=== PATIENT | female | born 1945 | race Caucasian/White ===

== ENCOUNTER → 2020-05-12 15:40 | Outpatient (CLI) | payer MEDICARE, OTHER, SELFPAY ==
[2020-05-13 17:59] LABS: COVID19 Sendout Not Detected (Not Detect)
== END ==
PROVIDERS: Visit Provider Physician Assistant
DX: Z01.812 Encounter for preprocedural laboratory examination (principal)
CPT/HCPCS: 87635

== ENCOUNTER 2020-05-15 05:59 | Inpatient (IN) | payer MEDICARE, OTHER, SELFPAY ==
[2020-05-08 09:53] VITALS: BMI 32.1
[2020-05-15] VITALS (16 sets, daily range): BP systolic 100–150; BP diastolic 40–75; PULSE 66–95; RESP 12–24; TEMP 36.1–37.6; O2SAT 95–98; BMI 32.4
--- NOTE | 2020-05-15 | DI.RAD.S_ITS ---
PROCEDURE: XR LUMBAR SPINE 2-3V INDICATIONS: L2-3, L3-4 XLIF TECHNIQUE: To views of the lumbar spine were acquired. COMPARISON: None. FINDINGS: Bones: Intraoperative images demonstrate postsurgical changes compatible with L2-L3 and L3-L4 XLIF. Orthopedic hardware is intact. Soft tissues: Overlying bowel gas pattern is normal. No suspicious soft tissue calcifications. IMPRESSION: Expected postsurgical change for L2-L3 and L3-L4 XLIF. Dictated by: Lynette Ennis MD, PhD on 05/15/2020 at 14:40 Approved by: Lynette Ennis MD, PhD on 05/15/2020 at 14:41
[2020-05-15] MEDS: LACTATED RINGERS 1,000 ML 42 ML IV ×2 (07:05→10:46)
--- NOTE | 2020-05-15 07:20 | PM.PREOP ---
Pre-operative Note COVID-19 COVID-19 status: Negative Result date/Date tested (Pos, Neg/Pending): 05/12/20 Interval Note History & Physical reviewed/Exam performed by Physician: Yes Changes to H&P: No
[2020-05-15] MEDS: CEFAZOLIN 2 GM/100 ML FROZ.PIGGY IV ×3 (07:58→19:36)
--- NOTE | 2020-05-15 08:31 | SUR.OPER ---
Right lateral on padded OR table. Head on pillow, gel axillary roll, pillow to support left arm. Legs flexed, pillows between legs, gel pad under down leg and ankle. Multiple passes of 3 inch cloth tape across shoulder, hip, upper and lower legs to secure patient on OR table. Prone on spine table, head in foam head support, padded chest and pelvic supports, gel pad at knees, lower legs supported by pillows; nipples, genitalia and toes free of pressure, arms secured on foam padded arm boards at <90 degrees abduction. Tape over blanket at thigh secured to table.
[2020-05-15] MEDS: VANCOMYCIN 1,000 MG VIAL 1000 MG TOP (08:44)
[2020-05-15] MEDS: THROMBIN (RECOMBINANT) 5,000 UNIT VIAL 5000 UNIT TOP (08:44)
[2020-05-15] MEDS: SODIUM CHLORIDE 0.9% 1,000 ML, GENTAMICIN 80 MG IRR ×2 (08:44→08:46)
[2020-05-15] MEDS: ACETAMINOPHEN IV 1,000 MG/100 ML VIAL 400 MG IV (10:05)
[2020-05-15] MEDS: BUPIVACAINE 0.5% (PF) 4 ML, MORPHINE-PF 4 MG, BUTORPHANOL 1 MG, fentaNYL 100 MCG INJ (11:32)
--- NOTE | 2020-05-15 12:45 | PM.OP.1 ---
Operative Date/Time/Diagnoses Date of procedure: 05/15/20 Time of procedure: 12:45 Pre-op diagnosis: Lumbar stenosis with radiculopathy History of lumbar fusion Post-op diagnosis: same Procedure & Clinicians Procedure: L2-3, L3-4 anterior fusion with cages L2-3, L3-4 posterior fusion L2, L3, L4 screws Removal of old L4, L5, S1 screws L2-3, L3-4 laminectomies Iliac crest bone graft aspirate Use of microscope Placement of epidural catheter Same procedure as scheduled: Yes Indications: [age] year old female with intractable pain from stenosis. They had failed conservative management and requested operative intervention. Risks and benefits of surgery were discussed and appropriate consents were obtained. Surgeon: Charanjit Sinclair Environmental Associate: Candi Salas Anesthesia Type: General Operative Notes Findings: None Closure Type: primary Specimen(s): none sent Prosthetic devices, grafts, tissues, transplants, or devices: NuVasive MAS reline screws and XLIF cages removed old Medtronic Legacy screws Applied: catheter Estimated Blood Loss (mL): 50 Blood products transfused: none Procedure in detail: Patient was brought to the operating room and intubated on the table. Time-out was performed. They were then rolled over to the lateral decubitus position with the [id number]. The table was bent and they were taped down in the correct position. X-rays were taken to confirm a true AP and lateral. Preoperative antibiotics were given. The left flank was prepped and draped in standard sterile fashion. Using fluoroscopy, a 3 cm incision was made above the iliac crest. We bluntly dissected down with Metzenbaum scissors and split the 3 abdominal muscle layers. We dissected out the retroperitoneal space and using finger guidance, brought our 1st dilator down to the psoas muscle. Using neuromonitoring and fluoroscopy, we placed it through the psoas onto the L3-4 disc space in an anterior position and gradually pulled the dilator posteriorly along the disc space. We placed our guidewire and measured our depth for the retractor. We then dilated with the next 2 dilators and then placed our retractor over the dilators. Position was confirmed with fluoroscopy and the retractor was locked down to the bar. We opened up the retractor and checked with neuro monitoring. We then placed the manisha and again checked with neuro monitoring. The retractor was opened further and the ALL retractor was placed. An annulotomy was performed. We then performed a complete diskectomy with ring curette, pituitary, box osteotome. A Ho was advanced across the disc space under fluoroscopy to release the lateral annulus on the opposite side. We then used sequentially larger trials and confirmed under fluoroscopy. An XLIF cage was packed with Osteocel bone graft and impacted into the L3-4 disc space with fluoroscopy for the anterior fusion at this level. The wound was irrigated. The retractor was closed down. The manisha was removed. We carefully removed the retractor with direct visualization to make sure there was no neurovascular or abdominal injury. We then moved the dilator up to L2-3. We dilated, placed a retractor, placed a Manisha, opened this up. We performed a complete diskectomy with lateral release. We prepped and then trialed and then placed another cage with bone graft into the L2-3 disc space for the anterior fusion at this level. The wound was irrigated. We carefully closed the retractor down and removed with direct visualization. Final x-rays were taken. The muscle fascia was closed, superficial tissue was closed. The skin was closed. Sterile dressing was placed. The patient was then rolled over on the well-padded prone position on the [place] table. Using fluoroscopy, we made to 12 cm longitudinal incisions on each side. Bovie used to come down to and split the lumbodorsal fascia. We kept splitting until we exposed the screws at L4, L5, and S1. These were cleared off of scar tissue and extra bone that was covering them. We then removed the set screws, rods, and pedicle screws on both sides from L4 through S1. We placed a guidewire down the L4 screw hole. We then placed Jamshidi needles down the right pedicles of L2 and L3 with fluoroscopic guidance and neural monitoring. These were changed out to guidewires. We then tapped and then placed our screw shanks down L2, L3, and L4. We up sized to a 7.5 mm screw at the previous L4 hole. We then opened up her retractors. We cleared out the gutter and decorticated the transverse processes. We cleared medially and expose the lamina. Brought in the microscope. A right-sided laminectomy was performed at L3-4. We used the bur to go across the midline and then carefully depressed the dura and remove the remainder of the lamina and the ligamentous thickening. She had massive facet hypertrophy on both sides and we had quite extensive work decompressing this until we had removed the overgrown facets and completely cleared out the canal and the neural foramen. A ball probe could be placed cephalad, caudally and out the foramen and it was all open. We then moved our retractors up to L2-3. Again we decorticated the transverse processes after clearing the gutter. We exposed medially and performed a right-sided laminectomy at L2-3. We again cleared all the way across the midline removed all the facet and ligament hypertrophy. In the end we could sweep the ball probe cephalad, caudally and out the foramen and everything was open. The wound was copiously irrigated. An epidural catheter was primed with 4mL of 0.5% bupivacaine, 100 mcg fentanyl, 4 mg Duramorph, 1 mg Stadol. The dura was depressed under the cephalad lamina with a ball probe and the epidural catheter was gently advanced 6 cm cephalad. We then placed our screw heads onto the shanks, measured our shirley, placed it and locked them down. A small stab incision was made over the PSIS and a Jamshidi needle was placed into the iliac crest and several mL of bone marrow was aspirated. This was mixed with our locally harvested bone graft as well as the remaining Osteocel and placed in the posterolateral gutter for fusion at L2-3 and L3-4. The fascia was then closed. The epidural was then injected without resistance. The catheter was pulled and we closed more over the fascia. We then went to the opposite side on the left. We percutaneously placed Jamshidi needles down the left pedicles of L2 and L3 and switched these up to guidewires using fluoroscopy and neural monitoring. We placed a guidewire down the previous hole of L4. We then tapped and placed our screws at L2, L3, and L4. We placed a shirley and locked it down. The wound was irrigated. The fascia was closed. Vancomycin powder was placed in the wounds. The superficial and skin were closed. Sterile dressing was placed. The patient was then rolled over, extubated, brought to the recovery room with no complications. Complications: none Post-operative Condition: stable Disposition: PACU Plan for aftercare: Inpatient. Up with PT. Anticipate 3 days until discharge.
[2020-05-15] MEDS: HYDROMORPHONE 2 MG INJ IV ×3 (13:07→13:55)
--- NOTE | 2020-05-15 14:01 | SUR.PHASEI ---
Report called to Stephanie on floor, pt stable pain at a 5. Few minutes after calling report pt states pain now a 6 and wanting more pain med.
--- NOTE | 2020-05-15 14:28 | SUR.PHASEI ---
1320 pt transferred to room 205 in stable condition via bed, handoff to MARY Brown. Pt in good spirits
--- NOTE | 2020-05-15 15:42 | PC.NURSE ---
Admitted Mrs Mccray to room 206. During admitting process her spouse was in the chair, sleepy appearing, nodding in the chair, appearing as if he might fall out of chair. He reports his blood pressure has been duncan high. SMy doctor put me on a new medicine for it. Spouse is also sl disoriented, thinking it was thursday instead of thursday, profusely diaphoretic at that moment. BP on the rt 88/53 p 71 and on the lt it is 84/52 p of 72. Denies pain but reports he is profoundly dizzy and his usual bp's are in the 170's systolic and occ higher. Offered to take pt to ED and at the least he needed to speak with his director of acquisition marketing to ask what he should do. Pt called md office on the phone. He decided to go to the ED and was transported there by w/c. Pt: She has been doing well, pain controlled for now. Cont pulse ox is on and sats on 3L are 93-95%. On RA she was 87%. Taking diet w/out problems. No nausea. decreased movement to lower legs and feet. Brisk cap refill, ppp, feet =/warm. Pt main concern is for her spouse right now.
[2020-05-15] MEDS: HYDROMORPHONE 0.5 MG INJ IV ×4 (16:08→21:55)
[2020-05-15] MEDS: LACTATED RINGERS 1,000 ML 125 ML IV (16:12)
[2020-05-15] MEDS: hydrOXYzine pamoate 25 MG CAPSULE PO (16:17)
[2020-05-15] MEDS: diazePAM 5 MG TABLET PO (16:28)
[2020-05-15] MEDS: HYDROCODONE/ACET 5/325 TABLET 1 TAB PO (16:40)
[2020-05-15] MEDS: HYDROCODONE/ACET 10/325 TABLET 1 TAB PO ×2 (16:41→20:46)
[2020-05-15] MEDS: DOCUSATE 100 MG CAPSULE PO (20:46)
[2020-05-15] MEDS: FAMOTIDINE 20 MG TABLET PO (20:46)
[2020-05-15] MEDS: SENNOSIDES 8.6 MG TABLET 17.2 MG PO (20:46)
[2020-05-15] MEDS: POLYVINYL ALCOHOL DROPS 1 DROPS EYE-BOTH (20:47)
[2020-05-15] MEDS: GABAPENTIN 300 MG CAPSULE 600 MG PO (20:47)
[2020-05-15] MEDS: ASPIRIN EC 81 MG TABLET PO (20:47)
[2020-05-15] MEDS: BACLOFEN 10 MG TABLET 20 MG PO (20:52)
[2020-05-16] MEDS: LACTATED RINGERS 1,000 ML 125 ML IV (01:00)
[2020-05-16] MEDS: HYDROCODONE/ACET 10/325 TABLET 2 TAB PO ×2 (02:59→10:50)
[2020-05-16 03:00] VITALS: BP 111/72; PULSE 84; RESP 18; TEMP 36.3; O2SAT 100
[2020-05-16] MEDS: CEFAZOLIN 2 GM/100 ML FROZ.PIGGY IV (03:39)
[2020-05-16 06:55] LABS: Hemoglobin 11.3 g/dL (12.0-16.0)
[2020-05-16 06:58] LABS: BUN Creatinine Ratio 21.3 (6-22); Blood Urea Nitrogen 20 mg/dL (7-17); Calcium 9.4 mg/dL (8.4-10.2); Carbon Dioxide 30 mmol/L (22-32); Chloride 102 mmol/L (98-107); Estimated Glomerular Filt Rate 58.4 mL/min (>60); Glucose 115 mg/dL (80-110); HEMOLYSIS < 15 (0-50); Potassium 4.2 mmol/L (3.4-5.1); Sodium 136 mmol/L (137-145)
[2020-05-16] MEDS: HYDROCODONE/ACET 10/325 TABLET 1 TAB PO ×4 (07:08→23:30)
[2020-05-16 07:45] VITALS: BP 89/52; PULSE 77; RESP 18; O2SAT 98
--- NOTE | 2020-05-16 07:50 | PM.PNPO.1 ---
Subjective Subjective Date Patient Seen: 05/16/20 Time Patient Seen: 07:50 Interval history: She's doing well. All LBP, about 6/10, but she's easily moving around in bed. Dressing soaked and changed last night. Exam Vital Signs (past 8 hours): - 05/16/20 03:00 Temperature 97.3 F L Pulse Rate 84 Respiratory Rate 18 Blood Pressure 111/72 Pulse Oximetry 100 Oxygen Delivery Method Nasal Cannula Oxygen Flow Rate 3 Const Orientation: alert and oriented x3 Back/Spine/Pelvis Other: cdi. 5/5 motor BLE Objective Labs Result Diagrams: 05/16/20 06:37 05/16/20 06:37 Labs: Laboratory Results - last 24 hr 05/16/20 05/16/20 06:37 06:37 Hgb 11.3 L Hct 33.0 L Sodium 136 L Potassium 4.2 Chloride 102 Carbon Dioxide 30 BUN 20 H Creatinine 0.94 Estimated GFR 58.4 L BUN/Creatinine Ratio 21.3 Glucose 115 H Calcium 9.4 Assessment & Plan Post-op Postoperative Procedures: Procedures Operation Date: 05/15/20 07:45 Actual Procedures Side Surgeon p L23,L34 laminectomies & anterior/posterior instrumented fusion w/bone graft/removal of old screws L4-S1 Charanjit Sinclair MD She's doing well, mobilize with PT today. Quality VTE Deep Vein Thrombosis/Pulmonary Embolism Present on Admission: No
[2020-05-16] MEDS: SODIUM CHLORIDE 0.9% FLUSH 10 ML IV ×2 (07:54→23:31)
[2020-05-16] MEDS: MELOXICAM 7.5 MG TABLET 15 MG PO (07:54)
[2020-05-16] MEDS: BACLOFEN 10 MG TABLET 20 MG PO ×2 (07:54→21:30)
[2020-05-16] MEDS: DOCUSATE 100 MG CAPSULE PO ×2 (07:55→21:30)
[2020-05-16] MEDS: FAMOTIDINE 20 MG TABLET PO ×2 (07:55→21:30)
[2020-05-16] MEDS: GABAPENTIN 300 MG CAPSULE 600 MG PO ×2 (07:55→21:31)
[2020-05-16] MEDS: LORATADINE 10 MG TABLET PO (07:56)
--- NOTE | 2020-05-16 08:14 | PC.NURSE ---
Addendum entered by Beatriz Marie R.N. 05/16/20 09:53: Pt A&OX4, able to make her needs known using call light. Pt' Zach in room. Pt very anxious regarding pain management and movement. Support and encouragement provided. Explained PRN medications available for pain, spasms, and anxiety and administration of prn medications to avoid sedation. Pt reports 6/10 pain to lower back radiating to right leg. Pain management plan discussed. Pt states at home she takes her scheduled Meloxicam and Baclofen first thing after waking in the morning at home for pain management. Scheduled Meloxicam and PRN Baclofen given at 0755. Pt ambulated to chair with PT around 0920, pt stated she had mobilized better than she thought she would have. Per PT pt requested prn pain med. None available at this time, next dose available 1100. PRn Vistaril given at 0940 for muscle spasms to lower back right side and right thigh. Lower back dressing CDI. Pt has chronic right lower leg numbness from foot to below knee and to left foot. Per PT, pt had a fall approx 3 months ago. bed and chair alarm used. Call light within reach. Original Note: Day Shift- Spoke with Dr. Sinclair at 0745, Brigido pain med administration range from [place] 2-02-70-20mg if needed depending on pain level. Spoke with Dr. Sinclair again at 0805, made aware pt's BP was 89/52, asymptomatic at this time, no new orders, will monitor. Pt drinking qs amount of fluids.
[2020-05-16 08:35] VITALS: BP 115/71; PULSE 83; RESP 16; TEMP 36.2; O2SAT 98
[2020-05-16] MEDS: FUROSEMIDE 20 MG TABLET PO (09:42)
[2020-05-16] MEDS: LOSARTAN 50 MG TABLET 100 MG PO (09:42)
[2020-05-16] MEDS: hydrOXYzine pamoate 25 MG CAPSULE PO ×2 (09:42→17:06)
--- NOTE | 2020-05-16 11:13 | PT.IIE ---
Current Diagnoses Spinal stenosis, lumbar region with neurogenic claudication (05/15/20) Arthrodesis status (05/15/20) Surgery Performed Operation Date: 05/15/20 07:45 Actual Procedures p L23,L34 laminectomies & anterior/posterior instrumented fusion w/bone graft/removal of old screws L4-S1 - Charanjit Sinclair MD Surgical History (Last Updated 05/08/20 @ 10:22 by Bertha Caro RN) History of arthroplasty of right knee (Acute) History of bladder surgery (Acute) History of carpal tunnel surgery of right wrist (Acute) History of cholecystectomy (Acute) History of lumbar spinal fusion (Acute) History of total left hip arthroplasty (Acute) History of total right hip arthroplasty (Acute) Hx of appendectomy (Acute) Hx of bilateral cataract extraction (Acute) Hx of section (Acute) Hx of tonsillectomy (Acute) Status post cervical spinal fusion (Acute 2011) Status post reverse total arthroplasty of right shoulder (Acute) Medical History (Last Updated 05/08/20 @ 10:22 by Bertha Caro RN) Back pain (Acute) CVA (cerebral vascular accident) (Acute 1994) Easy bruisability (Acute) Fibromyalgia (Acute) HTN (hypertension) (Acute) Nerve pain (Acute) Osteoarthritis (Acute) Osteoporosis (Acute) Seasonal allergies (Acute) Physical Therapy Inpatient Evaluation/Re-Eval M1 PT/OT-IP Prior Functional Status Start: 05/16/20 08:33 Freq: NEEDED Status: Active Protocol: Document 05/16/20 10:49 AW (Rec: 05/16/20 11:11 AW [email or web address]) Medical Review Prior Functional Status Medical History Reviewed Yes Communication Pt is an effective verbal communicator. Mobility and Gait Pt is modified indendent at baseline with use of 4WW most of the time and a single trekking pole part of the time . She states her mobility has declined since a fall ~3 months ago. She is concerned that she has lost a lot of core strength in that time. Activities of Daily Living and IADL's Modified independent with use of probation officer and sock aid for dressing. Independent with showers and toileting. Social History Household Members spouse Living Arrangements House Number of Floors (Floors) One Floor Home Environment High Toilet,Walk in Shower, Built-In Shower Seat,Ramp Home Equipment Four Wheel Walker,Bedside Commode,Shower Seat with Backrest,Medical Billing Supervisor,Sock Aid,Bed Rails,Grab Bars Near Toilet, Grab Bars In Shower Additional Social History Comment Pt typically exits the bed to her left side. She has a trapeze she can install on a bed cane if needed. She plans to sleep in a recliner for the first week after discharge. She lives with her spouse, Zach, who will be available and able to assist as needed. M2 PT-IP Current Condition Start: 05/16/20 08:33 Freq: NEEDED Status: Active Protocol: Document 05/16/20 10:49 AW (Rec: 05/16/20 11:11 AW [email or web address]) Physical Therapy Current Condition Current Condition Evaluation Date 05/16/20 Treatment Diagnosis s/p L2-3 L 3-4 TLIF; difficulty in walking Onset Date 05/15/20 Precautions Lumbar Precautions Log Roll,No Twisting,Limit Bending,Lifting Restriction of 10 lbs,Gait Belt above Incisional Area M3 PT-IP Subjective Start: 05/16/20 08:33 Freq: NEEDED Status: Active Protocol: Document 05/16/20 10:49 AW (Rec: 05/16/20 11:11 AW [email or web address]) Subjective Physical Therapy Visit Type Type Initial Evaluation Visit Start Time 09:04 Visit Stop Time 09:33 Total Visit Minutes 29 Physical Therapy Visit Comments Patient Comments Pt is willing to participate with PT Patient Goals Pt hopes to return home with her spouse assisting Therapy Pain Assessment Pain When Pain Assessed At Rest Pain Present Pain Present Pain Reported Location Lower Back Intensity 6 Scale Used 6/10 at rest; 8/10 during mobility Pain Management Techniques Apply Cold,Re-positioning, Timing of Activity with Medications M4 PT-IP Mobility and Gait Start: 05/16/20 08:33 Freq: NEEDED Status: Active Protocol: Document 05/16/20 10:49 AW (Rec: 05/16/20 11:11 AW [email or web address]) PT-Bed Mobility Assessment Rolling Type of Rolling Log Rolling,Roll to Left Level of Assist Minimal Assistance,1 Person Assistance Supine to Sit Supine to Sit Minimal Assistance,1 Person Assistance Scooting Scooting to Edge of Bed Standby Assistance PT-Transfer Assessment Sit to and From Stand Sit to and from Stand Minimal Assistance,1 Person Assistance,Use of Upper Extremities Equipment Transfer Assistive Device Gait Belt,Front Wheeled Walker Orthotic/Prosthetic Devices or Brace: No Transfers Transfer Destination Chair Transfer Technique pt ambulated with FWW Transfer Ability Level of Assist Contact Guard Assistance,Use of Upper Extremities Comments Mobility Comments Pt was reclined in the bed as PT arrived. With HOB flat, pt was able to log roll to her left side as she would at home and transition from sidelying to sit min A x 1. In sitting, she was able to sit EOB with and without UE support. She denied lightheadedness. Pt stood using FWW min A x 1 and ambulated two laps around the room with FWW CGA before transferring to the chair CGA and cues to use both hands on chair arms in order to avoid twisting. Pt was positioned on the chair with fresh ice and warm blanket, call light and all needs within reach. Nursing was alerted that pt was in chair and that PT was unable to locate a chair alarm . Gait Assessment Gait Gait Assistance Required: Contact Guard Assist Distance (Feet) 50 Able to Maintain Weight Bearing Status Yes During Gait Assistive Devices Assistive Device Gait Belt,Front Wheeled Walker Gait Deviations General Gait Pattern Antalgic,Decreased Stride Length,Decreased Feet Clearance,Flexed Trunk Factors Limiting Gait Function Factors Limiting Gait Function Decreased Activity Tolerance, Decreased Sensation,Decreased Strength,Limited Range of Motion,Pain,Poor Balance,Poor Safety Awareness Comments Gait Comments Pt ambulated around the room using FWW CGA with good attention to back precautions but reporting increased pain. Stair Climbing Assessment Comments Stair Climbing Comments Not assessed. No stairs at home. PT-Balance Assessment Sitting Balance and Reactions Static Sitting Balance Ability Good Dynamic Sitting Balance Ability Good Standing Balance and Reactions Static Standing Balance Ability Good Dynamic Standing Balance Ability Good Device Used FWW M5 PT-IP Objective Assessments Start: 05/16/20 08:33 Freq: NEEDED Status: Active Protocol: Document 05/16/20 10:49 AW (Rec: 05/16/20 11:11 AW [email or web address]) Orientation Orientation/Cognition Level of Alertness Alert Orientation Name,Day of Week,Place, Situation Language Function Ability No Deficits Noted Safety Awareness Decreased Safety Awareness Memory Description No Deficits Noted Gross Range of Motion Upper Extremity ROM Assessment Within Functional Limits Impairments Pt protects right shoulder with history of R reverse TSA but demonstrates good ROM. Lower Extremity ROM Assessment Within Functional Limits Strength Lower Extremity Strength Assessment Bilaterally Impaired Comments Strength Comments BLE grossly 4/5 Coordination Assessment Gross Coordination Gross Coordination WNL Sensation Assessment Sensation Gross Sensation Right LE Impaired,Left LE Impaired Light Touch Impaired Comments Sensation Comments Pt reports dull sensation to bilateral feet. Muscle Tone Muscle Tone WNL Yes M6 PT-IP Treatment Start: 05/16/20 08:33 Freq: NEEDED Status: Active Protocol: Document 05/16/20 10:49 AW (Rec: 05/16/20 11:11 AW [email or web address]) Physical Therapy Treatment Education Education Provided Precautions,Weight Bearing Status,Post-Op Packet,Safety Other Treatments Other Treatment Performed Provided education on role of PT, plan of care, post-op precautions, and safe use of FWW. M7 PT-IP Assessment and Plan Start: 05/16/20 08:33 Freq: NEEDED Status: Active Protocol: Document 05/16/20 10:49 AW (Rec: 05/16/20 11:11 AW [email or web address]) PT Summary Assessment and Plan Potential Rehabilitation Potential Good Status of Condition at Evaluation Evolving Summary Impairments Pain,ROM,Strength,Balance, Sensation,Bed Mobility, Transfers,Gait,Activity Tolerance Assessment Summary Mariah is a 75 yo woman seen for PT eval on POD1 following L2-3 L3-4 TLIF. She fell three months ago and has increased her use of a 4WW since that time. She lives with her supportive spouse who will be available to assist as needed at discharge. She has history of multiple orthopedic surgeries including RAHUL x 2, TKA, reverse total shoulder, laminectomy and cervical surgery. Pt was limited by pain on evaluation but required no more than min assist for bed mobility and CGA for transfers and short bout gait with FWW. PT anticipates Mariah will progress in the acute setting and will likely be safe to discharge home with spouse assist when medically cleared. Home health PT vs outpatient PT should also be considered. Goals Bed Mobility Goal Standby Assistance Transfer Goal Standby Assistance,Front Wheeled Walker Gait Goal Standby Assistance,Front Wheel Walker Gait Distance 200 Other Goals - pt will teach back spinal precautions Days to Meet Goals 3 Frequency of Treatment Frequency Of Treatment Twice a Day Treatment Plan Physical Therapy Treatment Plan Bed Mobility Training,Transfer Training,Gait Training, Therapeutic Exercise,Balance Retraining,Post Op Education, Discharge Planning,Hot or Cold Pack,Neuromuscular Re-ed Other Recommendations and Next Treatment review precautions; bed Focus mobility; progress gait with FWW; Recommendations To Nursing Amount of Assist Needed 1 Person Assist Discharge Recommendations PT Discharge Recommendations Home with Assistance,Home Health,Outpatient PT Other Discharge Recommendations home with assist and HH vs OP PT Transportation Needs at Discharge Private Vehicle
--- NOTE | 2020-05-16 12:10 | CM.DANOTE ---
DCP/Assessment: Reviewed chart. Patient is a 75yr old female admitted [facility] surgery performed on 05-15-20. PCP is Dr. Santana. Primary payor is 1)Medicare 2)[facility]. Met with patient explained CM/SW role. Patient reports that she resides with her spouse/Zach on [address]. Patient plans to d/c home when medically stable. Patient reports that she has all needed DME in the residence. Patient unsure on when she will discharge. Patient being followed by therapy. P: Anticipate home when medically stable. Patient reports that she has supportive spouse and does not anticipate any d/c planning needs. CM continue to follow. AKUA Severino Discharge Planning/Care Management CM Discharge Assessment Start: 05/16/20 12:00 Freq: Status: Active Protocol: Document 05/16/20 12:00 KJS (Rec: 05/16/20 12:10 KJS [id number]) Discharge Planning Assessment Assigned Telephone Messenger AKUA Severino Contact Information Zach Mccray (spouse) # Advance Directives? Yes Advance Directives on File No History Provided By Patient,Medical Record Prior Living Arrangements House Household Members spouse Type of transporation used prior to Drives own vehicle admit Independent with ADL's Yes Is patient alert and oriented? Yes Caregiver for Another No DME Already Rented / Owned Bath Bench,FWW / Walker, Bedside Commode Barriers to Discharge No Discharge Plan Home Transportation Arrangement Family to provide transport at time of d/c. Whiteboard Updated in Patient Room with Yes name and ext. # of Telephone Messenger Review Status In Process Next Review Type Continued Stay Review Pre-Anesthesia Assessment Start: 05/08/20 09:53 Freq: Status: Complete Protocol: Document 05/08/20 09:53 CAB (Rec: 05/08/20 10:39 CAB [id number]) Pre-Anesthesia Assessment Patient Information Reviewed Via Phone Assessment Assessment Completed With Patient H&P Completed Within 30 Days Yes Comment Labs/EKG done per pt, surgeon has-not here-COVID Screen @ 05/12/20 Primary Care Provider Everett Santana Seen Specialist in Last 12 Months Yes Specialist Seen Orthopedist Comment Rheumatology Primary Language Turkish Forge Press Operator Required No Height 165.1 cm Weight 87.543 kg Body Mass Index (BMI) 32.1 Hearing Ability Normal Visual Assist None Dentition Type Teeth, Natural Present Barriers to Learning None Other Aids No Hx Anesthesia Reactions No Hx Family Anesthesia Reaction No Hx Malignant Hyperthermia No Hx Blood Transfusions No Anesthesia Review Requested No alcohol intake current alcohol intake frequency 0-2 drinks per day Smoking Status Former smoker Tobacco type cigarettes how long ago did patient quit smoking Quit approx 15 years ago Substance Use Type other Comment CBD oil Pain Present Pain Reported Musculoskeletal Symptoms Abnormal Gait,Back Pain, Difficulty Walking,Muscle Cramps,Numbness,Radiating Pain into Limb History of Falling (Recent or History of Yes ) Patient is completely paralyzed or No completely immobile Prosthesis or Orthotic Device Cane,Front Wheel Walker Mental Status Oriented to own ability Comment My balance is terrible Is patient on oxygen? No Does patient have MCKENZIE/SOB No Hx Sleep Apnea No Currently Taking a Beta Peri No Can You Climb a Flight of Stairs Without Yes SOB Hx Chest Pain No Hx SOB No Hx Syncope or Dizziness No Anti-Coagulant Therapy Yes: ASA 81mg bid for CVA-pt to check w/PCP if needed to hold Has a Inside Account Executive No Cardiac Testing No Hx Pacemaker/ICD No Pacemaker Rep Required? No Cardiac Clearance Received Not Applicable Diet Type At Home Regular dysphagia No Gastrointestinal Symptoms Constipation Bladder Pattern Incontinent, Stress Urinary Catheter Present No Hx Urinary Self Catheterization No Diabetes No Patient No Lactating No Hx Drug Resistant Organism No Presence of External or Internal Medical Yes Devices Have you had any close contact with No someone diagnosed with COVID-19? Evaluation/Screening for possible COVID- Yes 19 infection completed? Marital Status Lives With spouse Prior Living Arrangements House Number of Floors (Floors) One Floor Support System Spouse Does the Patient Have Assistance After Yes Surgery Patient Discharge Plan Description Return Home Comment Pt advised 2-3 day length of stay per surgeon Feels Safe in Current Environment Yes Been Physically Hurt or Threatened By a No Person in Current Environment Do you have thoughts of harming yourself None or others? Are you currently considering suicide? No Do you have a plan to hurt yourself or No Plan others? Do You Have Any Spiritual Beliefs That No May Affect Your HC Choices? Do You Have Any Cultural Practices That No May Affect Your HC Choices? Comment Restorationism Who Can We Speak to About Patient's Care Family, friends Identifying Code for Release of Patient Declines to issue Information Health Care Proxy/Next of Kin Zach () Health Care Proxy Emergency Contact Name Zach () Emergency Contact Advance Directives? Yes Advance Directives on File No Requested Patient Bring Advanced Yes Directives DOS Power of Dry Ice Machine Operator Yes Power of Dry Ice Machine Operator Name Zach () Power of Dry Ice Machine Operator PAC Instructions Durable medical equipment, Medications to take/avoid, Nasal antibiotic,No ETOH/ petroleum product on skin DOS, Post-op transportation,Pre- surgical wash,Sturdy shoes/ comfortable clothes,Do not bring valuables and remove jewelry
--- NOTE | 2020-05-16 12:13 | OT.IP.EVAL ---
Current Diagnoses Spinal stenosis, lumbar region with neurogenic claudication (05/15/20) Arthrodesis status (05/15/20) Surgery Performed Operation Date: 05/15/20 07:45 Actual Procedures p L23,L34 laminectomies & anterior/posterior instrumented fusion w/bone graft/removal of old screws L4-S1 - Charanjit Sinclair MD Past Medical History (Last Updated 05/08/20 @ 10:22 by Bertha Caro RN) Back pain (Acute) CVA (cerebral vascular accident) (Acute 1994) Easy bruisability (Acute) Fibromyalgia (Acute) HTN (hypertension) (Acute) Nerve pain (Acute) Osteoarthritis (Acute) Osteoporosis (Acute) Seasonal allergies (Acute) Surgical History (Last Updated 05/08/20 @ 10:22 by Bertha Caro RN) History of arthroplasty of right knee (Acute) History of bladder surgery (Acute) History of carpal tunnel surgery of right wrist (Acute) History of cholecystectomy (Acute) History of lumbar spinal fusion (Acute) History of total left hip arthroplasty (Acute) History of total right hip arthroplasty (Acute) Hx of appendectomy (Acute) Hx of bilateral cataract extraction (Acute) Hx of section (Acute) Hx of tonsillectomy (Acute) Status post cervical spinal fusion (Acute 2011) Status post reverse total arthroplasty of right shoulder (Acute) Occupational Therapy Inpatient Evaluation/Re-Eval M1 PT/OT-IP Prior Functional Status Start: 05/16/20 12:49 Freq: NEEDED Status: Active Protocol: Document 05/16/20 11:25 [facility] (Rec: 05/16/20 13:05 [facility] [id number]) Medical Review Prior Functional Status Medical History Reviewed Yes Communication Pt is an effective verbal communicator. Mobility and Gait Pt is modified independent at baseline with use of 4WW most of the time and a single trekking pole part of the time . She states her mobility has declined since a fall ~3 months ago. She is concerned that she has lost a lot of core strength in that time. Activities of Daily Living and IADL's Modified independent with use of explosive technician and sock aid for dressing. Independent with showers and toileting. Social History Household Members spouse Living Arrangements House Number of Floors (Floors) One Floor Home Environment High Toilet,Walk in Shower, Built-In Shower Seat,Ramp Home Equipment Four Wheel Walker,Bedside Commode,Shower Seat with Backrest,Auto Tune Up Mechanic,Sock Aid,Bed Rails,Grab Bars Near Toilet, Grab Bars In Shower Additional Social History Comment Pt typically exits the bed to her left side. She has a trapeze she can install on a bed cane if needed. She plans to sleep in a recliner for the first week after discharge. She lives with her spouse, Zach, who will be available and able to assist as needed. M2 OT-IP Current Condition Start: 05/16/20 12:49 Freq: Status: Active Protocol: Document 05/16/20 11:25 [facility] (Rec: 05/16/20 13:05 [facility] [id number]) Occupational Therapy Current Condition Current Condition Evaluation Date 05/16/20 Treatment Diagnosis Lumbar Stenosis with radiculopathy Diagnosis Onset Date 05/15/20 Post Operative Precautions Lumbar Precautions Log Roll,No Twisting,Limit Bending,Lifting Restriction of 10 lbs,Gait Belt above Incisional Area M3 OT- IP Subjective and Pain Start: 05/16/20 12:49 Freq: Status: Active Protocol: Document 05/16/20 11:25 [facility] (Rec: 05/16/20 13:05 [facility] [id number]) OT- Subjective Occupational Therapy Visit Type Type Initial Evaluation Visit Start Time 11:25 Visit Stop Time 12:13 Total Visit Minutes 48 Notes Rep for bone stimulator company came to talk to the pt . Occupational Therapy Visit Comments Patient Comments Pt willing to get up to do grooming needs. Patient/Caregiver Goals To go home. OT Pain Assessment Pain When Pain Assessed During Mobility Pain Present Pain Present Pain Reported Location Right Leg Intensity 7 Scale Used Numeric (0 - 10) M4 OT- IP ADL's Start: 05/16/20 12:49 Freq: Status: Active Protocol: Document 05/16/20 11:25 [facility] (Rec: 05/16/20 13:05 [facility] [id number]) OT [id number] Comments OT Self-Feeding Comments Not at meal time. OT ADL-Grooming General Evaluation Grooming Ability Standby Assistance Areas Needing Assistance Retrieving/Set-up of Grooming Items Comments OT Grooming Comments VC for back precautions to spit into a cup while brushing her teeth and to keep FWW in front of her. OT ADL-Oral Care General Eval Oral Care Ability Independent OT ADL-Dressing General Eval Lower Body Dressing Ability Maximum Assistance Comments OT Dressing Comments Pt states prior use of explosive technician at home to assist with needs. Pt states her sock aid does not work well and to go over socks aid use tomorrow with pt . Pt just wanting to get up to do grooming and get back to bed at this time. OT ADL-Toileting General Evaluation Toileting Ability Total Assistance Comments OT Toileting Comments Pt has major at this time. OT ADL-Bathing Comments OT Bathing Comments NOt at this time. M5 OT- IP IADL's Start: 05/16/20 12:49 Freq: Status: Active Protocol: Document 05/16/20 11:25 [facility] (Rec: 05/16/20 13:05 [facility] [email or web address]) OT-Instrumental Activities of Daily Living Home Safety Awareness Awareness of Need for Assistance at Home Good Awareness Meal Preparation Meal Preparation Caregiver Provides Assist Musical Therapist Musical Therapist Caregiver Provides Assist M6 OT- IP Functional Cognition Start: 05/16/20 12:49 Freq: Status: Active Protocol: Document 05/16/20 11:25 [facility] (Rec: 05/16/20 13:05 [facility] [id number]) Cognitive Factors Limiting Selfcare Function Cognitive Ability Level of Alertness Alert Patient Orientation Name,Age,Birthday,Month,Date, Year,Day of Week,Place, Situation Attention Span Ability Capable of Focused Attention, Capable of Sustained Attention Ability to Follow Commands Able to Follow One Step Commands Memory Description Short Term Impaired Safety Awareness Decreased Ability to Apply Precautions,Underestimates Need for Assistance Problem Solving Ability Needs Assist to Identify Solutions Cognitive Comments Cognitive Assessment Comments Pt needing reminders for back precautions, step by step instruction for log rolling, and to be sure to use hand on the bed to help to push up to stand to FWW. OT- Vision and Hearing OT- Hearing Assessment OT- Hearing Assessment WFL OT- Vision Assessment Visual Acuity WFL M7 OT- IP Mobility and Balance Start: 05/16/20 12:49 Freq: Status: Active Protocol: Document 05/16/20 11:25 [facility] (Rec: 05/16/20 13:05 [facility] [id number]) OT- Bed Mobility Assessment Rolling Type of Rolling Roll to Left Level of Assistance Contact Guard Assistance, Bedrails Supine to Sit Supine to Sit Assist Minimal Assistance,1 Person Assistance Sit to Supine Sit to Supine Assist Moderate Assistance,1 Person Assistance,Bedrails OT-Transfer Assessment Sit to and From Stand Sit to and from Stand Minimal Assistance,1 Person Assistance Transfers Transfer Ability Minimal Assistance,1 Person Assistance Technique Transfer Destination Bed Devices Transfer Assistive Devices Gait Belt,Front Wheeled Walker Comments Mobility Comments LEENA to get up from sidelying and MODA to help get her legs into the bed. LEENA with FWW to walk to and from the bed to the sink due to slightly unsteady on her feet. OT- Balance Assessment Sitting Balance and Reactions Static Sitting Balance Ability Good Dynamic Sitting Balance Ability Fair Standing Balance and Reactions Static Standing Balance Ability Fair M9 OT- IP Assessment and Plan Start: 05/16/20 12:49 Freq: Status: Active Protocol: Document 05/16/20 11:25 [facility] (Rec: 05/16/20 13:05 [facility] [id number]) OT Summary Assessment and Plan Potential Rehabilitation Potential Good Analytic Complexity at Evaluation Low Summary OT Impairments Pain,Balance,Functional Cognition,Functional Mobility, Grooming,Dressing,Toileting, Bathing,Toilet Transfers, Shower Transfers,Activity Tolerance Progress Towards Goals Slow Progress due to Pain,Slow Progress due to Activity Tolerance Assessment Summary Pt low complexity and main barriers are pain , and now one person assist for Adl and transfer needs. In addition pt needing vc for safety awareness for FWW and back precautions. Pending caregiver training with pt's pt to go home with assist. Goals Grooming Goal Independent Dressing Goal Independent Toileting Goal Independent Bathing Goal Independent Toilet Transfer Goal Independent Shower Transfer Goal Independent Patient/Caregiver Education Goal Demonstrate Post-Op Precautions,Caregiver Independent Assisting Patient Days to Meet Goals 5 Frequency of Treatment Frequency Of Treatment Once a Day Treatment Plan OT Treatment Plan ADL Training,Functional Cognition Training,Functional Mobility,Patient/Family Education,Discharge Planning Other Treatment Recommendations and Next LB dressing, toileting Treatment Focus Discharge Recommendations OT Discharge Recommendations Home with Assistance Home Equipment Needs sock aid, toilet paper aid? Transportation Needs at Discharge Private Vehicle
[2020-05-16 13:24] VITALS: BP 123/56; PULSE 79; RESP 18; TEMP 36.7; O2SAT 95
--- NOTE | 2020-05-16 15:18 | PT.IPTN ---
Current Diagnoses Spinal stenosis, lumbar region with neurogenic claudication (05/15/20) Arthrodesis status (05/15/20) Surgery Performed Operation Date: 05/15/20 07:45 Actual Procedures p L23,L34 laminectomies & anterior/posterior instrumented fusion w/bone graft/removal of old screws L4-S1 - Charanjit Sinclair MD Physical Therapy Treatment Note M2 PT-IP Current Condition Start: 05/16/20 08:33 Freq: NEEDED Status: Active Protocol: Document 05/16/20 10:49 AW (Rec: 05/16/20 11:11 AW [id number]) Physical Therapy Current Condition Current Condition Evaluation Date 05/16/20 Treatment Diagnosis s/p L2-3 L 3-4 TLIF; difficulty in walking Onset Date 05/15/20 Precautions Lumbar Precautions Log Roll,No Twisting,Limit Bending,Lifting Restriction of 10 lbs,Gait Belt above Incisional Area M3 PT-IP Subjective Start: 05/16/20 08:33 Freq: NEEDED Status: Active Protocol: Document 05/16/20 14:50 TP (Rec: 05/16/20 16:31 TP [email or web address]) Subjective Physical Therapy Visit Type Type Treatment Note Visit Start Time 14:50 Visit Stop Time 15:18 Total Visit Minutes 28 Notes Che ORIENTAL RUG REPAIRER student supervised by Kristal GANDHI. Number of ORIENTAL RUG REPAIRER Visits 1 Physical Therapy Visit Comments Patient Comments Pt is willing to participate with PT Patient Goals Pt hopes to return home with her spouse assisting Therapy Pain Assessment Pain When Pain Assessed At Rest Pain Present Pain Present Pain Reported Location Lower Back Scale Used Pain report no scale given Pain Management Techniques Apply Cold,Re-positioning, Timing of Activity with Medications M4 PT-IP Mobility and Gait Start: 05/16/20 08:33 Freq: NEEDED Status: Active Protocol: Document 05/16/20 14:50 TP (Rec: 05/16/20 16:31 TP [email or web address]) PT-Bed Mobility Assessment Rolling Type of Rolling Roll to Left Level of Assist Minimal Assistance,1 Person Assistance Supine to Sit Supine to Sit Minimal Assistance,1 Person Assistance Sit to Supine Sit to Supine Minimal Assistance,1 Person Assistance Scooting Scooting to Edge of Bed Standby Assistance PT-Transfer Assessment Sit to and From Stand Sit to and from Stand Contact Guard Assistance,1 Person Assistance,Use of Upper Extremities Equipment Transfer Assistive Device Gait Belt,Front Wheeled Walker Orthotic/Prosthetic Devices or Brace: No Transfers Transfer Destination Bed Transfer Technique pt ambulated with FWW Transfer Ability Level of Assist Contact Guard Assistance,1 Person Assistance,Use of Upper Extremities Comments Mobility Comments Pt was reclined in the bed as PT arrived. With HOB flat, pt was able to log roll to her left side as she would at home and transition from sidelying to sit min A x 1. In sitting, she was able to sit EOB with and without UE support. Pt stood using FWW min A x 1 and ambulated further distance into hallway, approximately 130ft FWW CGA before return to bed, cues to use both hands to reach back to the bed prior to sitting. Pt education regarding hip hinge to maintain no bending of lumbar spine to adhere to spinal precautions. Sit to supine, including log roll Min Ax1 for LE repositioning on bed. Pt was positioned in the bed with fresh ice on lateral R LB, call light and all needs within reach. Discussed with nursing pt request to remove Traore catheter. Pt would benefit from futher acute PT to progress in increase bed mobility to increase functional independence and progress further strength and endurance for gait. Gait Assessment Gait Gait Assistance Required: Contact Guard Assist Distance (Feet) 130 Able to Maintain Weight Bearing Status Yes During Gait Assistive Devices Assistive Device Gait Belt,Front Wheeled Walker Orthotic/Prosthetic Devices or Brace: No Gait Deviations General Gait Pattern Antalgic,Decreased Stride Length,Decreased Feet Clearance,Flexed Trunk Factors Limiting Gait Function Factors Limiting Gait Function Decreased Activity Tolerance, Decreased Sensation,Decreased Strength,Limited Range of Motion,Pain,Poor Balance,Poor Safety Awareness Comments Gait Comments Pt ambulated approximately 130ft using FWW CGA with good attention to back precautions but reporting increased pain due to need for next dose of pain medication. Stair Climbing Assessment Comments Stair Climbing Comments Not assessed. No stairs at home. PT-Balance Assessment Sitting Balance and Reactions Static Sitting Balance Ability Good Dynamic Sitting Balance Ability Good Standing Balance and Reactions Static Standing Balance Ability Good Dynamic Standing Balance Ability Good Device Used FWW M5 PT-IP Objective Assessments Start: 05/16/20 08:33 Freq: NEEDED Status: Active Protocol: Document 05/16/20 10:49 AW (Rec: 05/16/20 11:11 AW [id number]) Orientation Orientation/Cognition Level of Alertness Alert Orientation Name,Day of Week,Place, Situation Language Function Ability No Deficits Noted Safety Awareness Decreased Safety Awareness Memory Description No Deficits Noted Gross Range of Motion Upper Extremity ROM Assessment Within Functional Limits Impairments Pt protects right shoulder with history of R reverse TSA but demonstrates good ROM. Lower Extremity ROM Assessment Within Functional Limits Strength Lower Extremity Strength Assessment Bilaterally Impaired Comments Strength Comments BLE grossly 4/5 Coordination Assessment Gross Coordination Gross Coordination WNL Sensation Assessment Sensation Gross Sensation Right LE Impaired,Left LE Impaired Light Touch Impaired Comments Sensation Comments Pt reports dull sensation to bilateral feet. Muscle Tone Muscle Tone WNL Yes M6 PT-IP Treatment Start: 05/16/20 08:33 Freq: NEEDED Status: Active Protocol: Document 05/16/20 14:50 TP (Rec: 05/16/20 16:31 TP [email or web address]) Physical Therapy Treatment Education Education Provided Precautions,Safety Other Treatments Other Treatment Performed Provided education on post-op precautions, and safe use of FWW. M7 PT-IP Assessment and Plan Start: 05/16/20 08:33 Freq: NEEDED Status: Active Protocol: Document 05/16/20 14:50 TP (Rec: 05/16/20 16:31 TP [email or web address]) PT Summary Assessment and Plan Potential Rehabilitation Potential Good Status of Condition at Evaluation Evolving Summary Impairments Pain,ROM,Strength,Balance, Sensation,Bed Mobility, Transfers,Gait,Activity Tolerance Assessment Summary Mobility and endurance limitations due to pain. Continued PT tx needed to assist in pain management, increase strength and endurance for gait and reinforce education of spinal precautions during bed mobility. Continue acute PT to progress in safe performance of spinal precautions and increase strength and endurance for independent mobility to return to personal hobbies. At this time, PT recommending return home with spouse for light assistance. Goals Bed Mobility Goal Standby Assistance Transfer Goal Standby Assistance,Front Wheeled Walker Gait Goal Standby Assistance,Front Wheel Walker Gait Distance 200 Other Goals - pt will teach back spinal precautions Days to Meet Goals 3 Frequency of Treatment Frequency Of Treatment Twice a Day Treatment Plan Physical Therapy Treatment Plan Bed Mobility Training,Transfer Training,Gait Training, Therapeutic Exercise,Balance Retraining,Post Op Education, Discharge Planning,Hot or Cold Pack,Neuromuscular Re-ed Other Recommendations and Next Treatment review precautions; bed Focus mobility; progress gait with FWW; Recommendations To Nursing Amount of Assist Needed 1 Person Assist Discharge Recommendations PT Discharge Recommendations Home with Assistance,Home Health,Outpatient PT Other Discharge Recommendations home with assist and HH vs OP PT Transportation Needs at Discharge Private Vehicle
[2020-05-16 15:45] VITALS: BP 94/53; PULSE 80; RESP 20; TEMP 36.8; O2SAT 96
[2020-05-16] MEDS: HYDROCODONE/ACET 5/325 TABLET 1 TAB PO ×2 (19:28→23:31)
[2020-05-16 20:00] VITALS: BP 119/54; PULSE 81; RESP 18; TEMP 37
[2020-05-16] MEDS: POLYVINYL ALCOHOL DROPS 1 DROPS EYE-BOTH (21:31)
[2020-05-16] MEDS: ASPIRIN EC 81 MG TABLET PO (21:31)
[2020-05-17] VITALS: BP 95/52; PULSE 72; RESP 16; TEMP 36.8; O2SAT 92
--- NOTE | 2020-05-17 00:17 | PC.NURSE ---
dressing changed around 1929. pt old dressing was saturated, 2 abd bad saturated. incision looked intact. no foul odor. placed 1 abd pad and 2 adhesive telfa. pt refused 2 abd pads.
[2020-05-17] MEDS: HYDROCODONE/ACET 10/325 TABLET 1 TAB PO ×5 (04:08→20:32)
[2020-05-17 04:11] VITALS: BP 119/66; PULSE 75; RESP 16; TEMP 36.6; O2SAT 93
--- NOTE | 2020-05-17 06:38 | PC.NURSE ---
Traore removed at 0630 Patient slept throughout most of shift; only reported moderate pain overnight and was just given 1 10mg [place] Dressing to back is clean dry and intact b/l scds on
--- NOTE | 2020-05-17 07:25 | PM.PNPO.1 ---
Subjective Subjective Date Patient Seen: 05/17/20 Time Patient Seen: 07:25 Interval history: Yesterday was rough with pain control finally got it under decent pain by the evening. She was up 4 times yesterday. No leg pain, just all tight pain across the back. Her dressing had saturated and was changed yesterday evening. Exam Vital Signs (past 8 hours): - 05/17/20 00:00 05/17/20 04:11 Temperature 98.3 F 98 F Pulse Rate 72 75 Respiratory Rate 16 16 Blood Pressure 95/52 L 119/66 Pulse Oximetry 92 93 Oxygen Delivery Method Room Air Oxygen Flow Rate 0 Const Orientation: alert and oriented x3 Back/Spine/Pelvis Other: CDI. 5/5 motor both lower extremities. Objective Labs Result Diagrams: 05/16/20 06:37 05/16/20 06:37 Assessment & Plan Post-op Postoperative Procedures: Procedures Operation Date: 05/15/20 07:45 Actual Procedures Side Surgeon p L23,L34 laminectomies & anterior/posterior instrumented fusion w/bone graft/removal of old screws L4-S1 Charanjit Sinclair MD She is progressing slowly. Continue to mobilize with physical therapy. Anticipate discharge home tomorrow. Quality VTE Deep Vein Thrombosis/Pulmonary Embolism Present on Admission: No
[2020-05-17 08:00] VITALS: BP 105/56; PULSE 69; RESP 16; TEMP 37.1; O2SAT 94
[2020-05-17] MEDS: SODIUM CHLORIDE 0.9% FLUSH 10 ML IV ×2 (08:06→20:33)
[2020-05-17] MEDS: MELOXICAM 7.5 MG TABLET 15 MG PO (08:08)
[2020-05-17] MEDS: BACLOFEN 10 MG TABLET 20 MG PO ×2 (08:08→20:32)
[2020-05-17] MEDS: FAMOTIDINE 20 MG TABLET PO (08:09)
[2020-05-17] MEDS: DOCUSATE 100 MG CAPSULE PO ×2 (08:09→20:33)
[2020-05-17] MEDS: FUROSEMIDE 20 MG TABLET PO (08:09)
[2020-05-17] MEDS: LORATADINE 10 MG TABLET PO (08:09)
[2020-05-17] MEDS: GABAPENTIN 300 MG CAPSULE 600 MG PO ×2 (08:09→20:31)
[2020-05-17] MEDS: LOSARTAN 50 MG TABLET 100 MG PO (08:09)
--- NOTE | 2020-05-17 10:05 | OT.IP.TRT ---
Current Diagnoses Spinal stenosis, lumbar region with neurogenic claudication (05/15/20) Arthrodesis status (05/15/20) Surgery Performed Operation Date: 05/15/20 07:45 Actual Procedures p L23,L34 laminectomies & anterior/posterior instrumented fusion w/bone graft/removal of old screws L4-S1 - Charanjit Sinclair MD Occupational Therapy Treatment Note M2 OT-IP Current Condition Start: 05/16/20 12:49 Freq: Status: Active Protocol: Document 05/16/20 11:25 [facility] (Rec: 05/16/20 13:05 [facility] [email or web address]) Occupational Therapy Current Condition Current Condition Evaluation Date 05/16/20 Treatment Diagnosis Lumbar Stenosis with radiculopathy Diagnosis Onset Date 05/15/20 Post Operative Precautions Lumbar Precautions Log Roll,No Twisting,Limit Bending,Lifting Restriction of 10 lbs,Gait Belt above Incisional Area M3 OT- IP Subjective and Pain Start: 05/16/20 12:49 Freq: Status: Active Protocol: Document 05/17/20 10:53 [facility] (Rec: 05/17/20 11:05 [facility] [email or web address]) OT- Subjective Occupational Therapy Visit Type Type Treatment Note Visit Start Time 09:24 Visit Stop Time 10:05 Total Visit Minutes 41 Occupational Therapy Visit Comments Patient Comments Pt sitting up in the recliner and present and agreeable to do caregiver training. Patient/Caregiver Goals TO go home. OT Pain Assessment Pain When Pain Assessed During Mobility Pain Present Pain Present Pain Reported Location Right Leg Intensity 4 Scale Used Numeric (0 - 10) M4 OT- IP ADL's Start: 05/16/20 12:49 Freq: Status: Active Protocol: Document 05/17/20 10:53 [facility] (Rec: 05/17/20 11:05 [facility] [email or web address]) OT [id number] General Evaluation Self-Feeding Ability Independent OT ADL-Grooming General Evaluation Grooming Ability Standby Assistance Comments OT Grooming Comments At the sink. OT ADL-Dressing General Eval Lower Body Dressing Ability Minimal Assistance Comments OT Dressing Comments LEENA to assist with brief at this time. OT ADL-Toileting General Evaluation Toileting Ability Moderate Assistance Comments OT Toileting Comments Pt unable to reach to wipe and will need assist for hygiene after a bowel movement. Educated to pt would benefit from toilet paper aid and that pt to order one online as does not want her to assist her for hygiene needs. Pt has installed a grab bar at home to assist to help to stand. OT ADL-Bathing Comments OT Bathing Comments To do tomorrow. M5 OT- IP IADL's Start: 05/16/20 12:49 Freq: Status: Active Protocol: Document 05/16/20 11:25 [facility] (Rec: 05/16/20 13:05 [facility] [email or web address]) OT-Instrumental Activities of Daily Living Home Safety Awareness Awareness of Need for Assistance at Home Good Awareness Meal Preparation Meal Preparation Caregiver Provides Assist Catering Staff Member Catering Staff Member Caregiver Provides Assist M6 OT- IP Functional Cognition Start: 05/16/20 12:49 Freq: Status: Active Protocol: Document 05/17/20 10:53 [facility] (Rec: 05/17/20 11:05 [facility] [email or web address]) Cognitive Factors Limiting Selfcare Function Cognitive Ability Level of Alertness Alert Patient Orientation Name,Age,Birthday,Month,Date, Year,Day of Week,Place, Situation Attention Span Ability Capable of Focused Attention, Capable of Sustained Attention Ability to Follow Commands Able to Follow One Step Commands Memory Description Short Term Impaired Safety Awareness Decreased Ability to Apply Precautions,Underestimates Need for Assistance Cognitive Comments Cognitive Assessment Comments Pt still needing occasional reminders for back precautions . M7 OT- IP Mobility and Balance Start: 05/16/20 12:49 Freq: Status: Active Protocol: Document 05/17/20 10:53 [facility] (Rec: 05/17/20 11:05 [facility] [email or web address]) OT- Bed Mobility Assessment Rolling Type of Rolling Roll to Left Level of Assistance Contact Guard Assistance, Bedrails Supine to Sit Supine to Sit Assist Minimal Assistance,1 Person Assistance Sit to Supine Sit to Supine Assist Minimal Assistance,1 Person Assistance OT-Transfer Assessment Sit to and From Stand Sit to and from Stand Contact Guard Assistance Transfers Transfer Ability Standby Assistance Technique Transfer Destination Bed,Chair,Toilet Devices Transfer Assistive Devices Gait Belt,Front Wheeled Walker Comments Mobility Comments Educated pt's how to don/doff the gait belt and how to assist pt for bed mobility and transfers. Able to practice with pt and and at the end of the session pt's able to assist pt . Pt needing at times to cue to remind him how to assist her. OT- Gait Assessment Comments Gait Ability Comments SBA with FWW in the room. OT- Balance Assessment Sitting Balance and Reactions Static Sitting Balance Ability Normal Dynamic Sitting Balance Ability Good Standing Balance and Reactions Static Standing Balance Ability Good Dynamic Standing Balance Ability Fair M9 OT- IP Assessment and Plan Start: 05/16/20 12:49 Freq: Status: Active Protocol: Document 05/17/20 10:53 [facility] (Rec: 05/17/20 11:05 [facility] [email or web address]) OT Summary Assessment and Plan Potential Rehabilitation Potential Good Analytic Complexity at Evaluation Low Summary OT Impairments Pain,Functional Cognition, Functional Mobility,Dressing, Toileting,Bathing,Toilet Transfers,Shower Transfers Progress Towards Goals Progressing Toward Goals Assessment Summary Initiated caregiver training with pt's . Pt's able to ania/doff gait belt, assist for transfers and bed mobility. Educated pt to give concrete and direct commands, for example instead of saying, I need a pillow. to say Please get me a pillow. To continue caregiver training tomorrow with pt and regarding showering and dressing needs. Pt issued a sock aid and pt to order herself a toilet paper aid. Goals Grooming Goal Independent Dressing Goal Independent Toileting Goal Independent,Toilet Paper Aid Bathing Goal Standby Assistance Toilet Transfer Goal Independent Shower Transfer Goal Independent Patient/Caregiver Education Goal Demonstrate Post-Op Precautions,Caregiver Independent Assisting Patient Days to Meet Goals 2 Frequency of Treatment Frequency Of Treatment Once a Day Treatment Plan OT Treatment Plan ADL Training,Functional Cognition Training,Functional Mobility,Patient/Family Education,Discharge Planning Other Treatment Recommendations and Next Shower Treatment Focus Discharge Recommendations OT Discharge Recommendations Home with Assistance Home Equipment Needs Toilet paper aid Transportation Needs at Discharge Private Vehicle
--- NOTE | 2020-05-17 11:04 | PT.IPTN ---
Current Diagnoses Spinal stenosis, lumbar region with neurogenic claudication (05/15/20) Arthrodesis status (05/15/20) Surgery Performed Operation Date: 05/15/20 07:45 Actual Procedures p L23,L34 laminectomies & anterior/posterior instrumented fusion w/bone graft/removal of old screws L4-S1 - Charanjit Sinclair MD Physical Therapy Treatment Note M2 PT-IP Current Condition Start: 05/16/20 08:33 Freq: NEEDED Status: Active Protocol: Document 05/16/20 10:49 [facility] (Rec: 05/16/20 11:11 [facility] [email or web address]) Physical Therapy Current Condition Current Condition Evaluation Date 05/16/20 Treatment Diagnosis s/p L2-3 L 3-4 TLIF; difficulty in walking Onset Date 05/15/20 Precautions Lumbar Precautions Log Roll,No Twisting,Limit Bending,Lifting Restriction of 10 lbs,Gait Belt above Incisional Area M3 PT-IP Subjective Start: 05/16/20 08:33 Freq: NEEDED Status: Active Protocol: Document 05/17/20 10:41 [facility] (Rec: 05/17/20 13:32 [facility] [email or web address]) Subjective Physical Therapy Visit Type Type Treatment Note Visit Start Time 10:41 Visit Stop Time 11:04 Total Visit Minutes 23 Number of TELEGRAPH PRINTER MECHANIC Visits 2 Physical Therapy Visit Comments Patient Comments Pt is willing to participate with PT Patient Goals Pt hopes to return home with her spouse assisting Therapy Pain Assessment Pain When Pain Assessed During Mobility Pain Present Pain Present Pain Reported Location Lower Back Intensity 7 Scale Used Numeric (0 - 10) Description Aching Pain Behaviors Guarding,Wincing Pain Management Techniques Distraction,Re-positioning M4 PT-IP Mobility and Gait Start: 05/16/20 08:33 Freq: NEEDED Status: Active Protocol: Document 05/17/20 10:41 [facility] (Rec: 05/17/20 13:32 [facility] [email or web address]) PT-Bed Mobility Assessment Rolling Type of Rolling Roll to Left Level of Assist Contact Guard Assistance, Minimal Assistance,1 Person Assistance Supine to Sit Supine to Sit Contact Guard Assistance,1 Person Assistance Sit to Supine Sit to Supine Contact Guard Assistance,1 Person Assistance Scooting Scooting to Edge of Bed Standby Assistance Scooting Up and Down in Bed Moderate Assistance PT-Transfer Assessment Sit to and From Stand Sit to and from Stand Contact Guard Assistance,1 Person Assistance,Use of Upper Extremities Equipment Transfer Assistive Device Gait Belt,Front Wheeled Walker Orthotic/Prosthetic Devices or Brace: No Transfers Transfer Destination Bed,Toilet Transfer Technique pt ambulated with FWW Transfer Ability Level of Assist Contact Guard Assistance,1 Person Assistance,Use of Upper Extremities Comments Mobility Comments Pt in bed upon arrival from therapy and able to recall 3/3 spinal precautions. Pt CGA for logroll to L and sidelying <>sit. SBA for scooting EOB. Pt then performed sit<>stand and ambulated to bathroom w/ FWW and CGA, cues for use of hand rail and hip hinge mechanics when stand<>sit on toilet. Pt able to doff and ania own briefs w/ proper hip hinge. CGA fro sit<> stand from toilet. Pt then agreed to ambulation in hallway ~100 ft w/ FWW and CGA . Pt reported some weakness and lightheadedness during ambulation, but refused w/c. Lightheadedness subsided w/ cues for pursed lip breathing. Pt returned to bed, Min A for logroll back into bed for LE guidance. AOC DIRECTOR COMBAT OPERATIONS OFFICER arrived for scooting up in bed Max A x2. Pt left in bed w/ all needs in reach. Gait Assessment Gait Gait Assistance Required: Contact Guard Assist Distance (Feet) 100 Able to Maintain Weight Bearing Status Yes During Gait Assistive Devices Assistive Device Gait Belt,Front Wheeled Walker Orthotic/Prosthetic Devices or Brace: No Gait Deviations General Gait Pattern Antalgic,Decreased Stride Length,Decreased Feet Clearance,Flexed Trunk Factors Limiting Gait Function Factors Limiting Gait Function Decreased Activity Tolerance, Decreased Sensation,Decreased Strength,Limited Range of Motion,Pain,Poor Balance,Poor Safety Awareness Comments Gait Comments Pt ambulated ~100ft w/ FWW and CGA. Pt demonstrated proper use of FWW, but c/o increased pain/wearing off of medication . Pt reported slight lightheadedness during ambulation that subsided w/ pursed lip breathing. Stair Climbing Assessment Comments Stair Climbing Comments Not assessed. No stairs at home. PT-Balance Assessment Sitting Balance and Reactions Static Sitting Balance Ability Good Dynamic Sitting Balance Ability Good Standing Balance and Reactions Static Standing Balance Ability Good Dynamic Standing Balance Ability Good Device Used FWW M5 PT-IP Objective Assessments Start: 05/16/20 08:33 Freq: NEEDED Status: Active Protocol: Document 05/16/20 10:49 [facility] (Rec: 05/16/20 11:11 [facility] [email or web address]) Orientation Orientation/Cognition Level of Alertness Alert Orientation Name,Day of Week,Place, Situation Language Function Ability No Deficits Noted Safety Awareness Decreased Safety Awareness Memory Description No Deficits Noted Gross Range of Motion Upper Extremity ROM Assessment Within Functional Limits Impairments Pt protects right shoulder with history of R reverse TSA but demonstrates good ROM. Lower Extremity ROM Assessment Within Functional Limits Strength Lower Extremity Strength Assessment Bilaterally Impaired Comments Strength Comments BLE grossly 4/5 Coordination Assessment Gross Coordination Gross Coordination WNL Sensation Assessment Sensation Gross Sensation Right LE Impaired,Left LE Impaired Light Touch Impaired Comments Sensation Comments Pt reports dull sensation to bilateral feet. Muscle Tone Muscle Tone WNL Yes M6 PT-IP Treatment Start: 05/16/20 08:33 Freq: NEEDED Status: Active Protocol: Document 05/17/20 10:41 [facility] (Rec: 05/17/20 13:32 [facility] [email or web address]) Physical Therapy Treatment Education Education Provided Precautions,Safety Other Treatments Other Treatment Performed Discussed post pelvic tilt/ core stabilization when repositioning in bed to protect spine/decrease pain. M7 PT-IP Assessment and Plan Start: 05/16/20 08:33 Freq: NEEDED Status: Active Protocol: Document 05/17/20 10:41 [facility] (Rec: 05/17/20 13:32 [facility] [email or web address]) PT Summary Assessment and Plan Potential Rehabilitation Potential Good Status of Condition at Evaluation Evolving Summary Impairments Pain,ROM,Strength,Balance, Sensation,Bed Mobility, Transfers,Gait,Activity Tolerance Assessment Summary Pt continues to be limited by pain, but is improving w/ bed mobility and transfers. Pt Min A for logroll into bed for LE guidance, CGA for scooting EOB, CGA for transfers and ambulation. Max A x2 for scooting up in bed. Educated pt on post pelvic tilt/core stabilization when repositioning in bed to protect spine. Will assess further ambulation distance this PM. Pt will benefit from continued PT to improve strength, bed mobility, and tolerance for ambulation w/ FWW. Goals Bed Mobility Goal Standby Assistance Transfer Goal Standby Assistance,Front Wheeled Walker Gait Goal Standby Assistance,Front Wheel Walker Gait Distance 200 Other Goals - pt will teach back spinal precautions Days to Meet Goals 3 Frequency of Treatment Frequency Of Treatment Twice a Day Treatment Plan Physical Therapy Treatment Plan Bed Mobility Training,Transfer Training,Gait Training, Therapeutic Exercise,Balance Retraining,Post Op Education, Discharge Planning,Hot or Cold Pack,Neuromuscular Re-ed Other Recommendations and Next Treatment review precautions; bed Focus mobility; progress gait with FWW; Discharge Recommendations PT Discharge Recommendations Home with Assistance,Home Health,Outpatient PT Other Discharge Recommendations home with assist and HH vs OP PT Transportation Needs at Discharge Private Vehicle
[2020-05-17 12:30] VITALS: BP 113/56; PULSE 70; RESP 18; TEMP 37.4; O2SAT 99
--- NOTE | 2020-05-17 14:32 | PT.IPTN ---
Current Diagnoses Spinal stenosis, lumbar region with neurogenic claudication (05/15/20) Arthrodesis status (05/15/20) Surgery Performed Operation Date: 05/15/20 07:45 Actual Procedures p L23,L34 laminectomies & anterior/posterior instrumented fusion w/bone graft/removal of old screws L4-S1 - Charnajit Sinclair MD Physical Therapy Treatment Note M2 PT-IP Current Condition Start: 05/16/20 08:33 Freq: NEEDED Status: Active Protocol: Document 05/16/20 10:49 [facility] (Rec: 05/16/20 11:11 [facility] [email or web address]) Physical Therapy Current Condition Current Condition Evaluation Date 05/16/20 Treatment Diagnosis s/p L2-3 L 3-4 TLIF; difficulty in walking Onset Date 05/15/20 Precautions Lumbar Precautions Log Roll,No Twisting,Limit Bending,Lifting Restriction of 10 lbs,Gait Belt above Incisional Area M3 PT-IP Subjective Start: 05/16/20 08:33 Freq: NEEDED Status: Active Protocol: Document 05/17/20 14:09 [facility] (Rec: 05/17/20 15:04 [facility] [email or web address]) Subjective Physical Therapy Visit Type Type Treatment Note Visit Start Time 14:09 Visit Stop Time 14:32 Total Visit Minutes 23 Number of CUSTOMER SOLUTIONS TEAMMATE Visits 3 Physical Therapy Visit Comments Patient Comments Pt is willing to participate with PT Patient Goals Pt hopes to return home with her spouse assisting Therapy Pain Assessment Pain When Pain Assessed During Mobility Pain Present Pain Present Pain Reported Location Lower Back Intensity 8 Scale Used Numeric (0 - 10) Description Aching Pain Behaviors Guarding,Wincing Pain Management Techniques Distraction,Re-positioning, Timing of Activity with Medications M4 PT-IP Mobility and Gait Start: 05/16/20 08:33 Freq: NEEDED Status: Active Protocol: Document 05/17/20 14:09 [facility] (Rec: 05/17/20 15:04 [facility] [email or web address]) PT-Bed Mobility Assessment Rolling Type of Rolling Roll to Left Level of Assist Contact Guard Assistance, Minimal Assistance,1 Person Assistance Supine to Sit Supine to Sit Contact Guard Assistance,1 Person Assistance Sit to Supine Sit to Supine Contact Guard Assistance,1 Person Assistance Scooting Scooting to Edge of Bed Standby Assistance Scooting Up and Down in Bed Moderate Assistance PT-Transfer Assessment Sit to and From Stand Sit to and from Stand Contact Guard Assistance,1 Person Assistance,Use of Upper Extremities Equipment Transfer Assistive Device Gait Belt,Front Wheeled Walker Transfers Transfer Destination Bed,Toilet Transfer Technique pt ambulated with FWW Transfer Ability Level of Assist Contact Guard Assistance,1 Person Assistance,Use of Upper Extremities Comments Mobility Comments Pt sleeping upon arrival and agitated when awaken, but stated she needed to use bathroom. CGA for logroll and sidelying to sit, SBA for scooting EOB. CGA for sit<> stand and ambulation to bathroom and stand<>sit<>stand fron toilet w/ FWW. Pt reported 8/10 w/ mobility this afternoon despite being pre-medicated an hour and a half prior to treatment per pts request. Pt tearful, but stated she wanted to ambulate. Pt ambulated ~230 [address] in hallway w/ FWW CGA and cues for breathing. Pt admits to slight decrease in pain when ambulating, but no number given. Cues for upright posture required. Pt returned to room, CGA for stand<>sit, Min A for logroll back into bed for LE guidance and cues to maintain spinal alignment. LIVESTOCK NUTRITIONIST called to assist w/ repositioning. Pt left in room w/ LIVESTOCK NUTRITIONIST. Gait Assessment Gait Gait Assistance Required: Contact Guard Assist Distance (Feet) 250 Able to Maintain Weight Bearing Status Yes During Gait Assistive Devices Assistive Device Gait Belt,Front Wheeled Walker Orthotic/Prosthetic Devices or Brace: No Gait Deviations General Gait Pattern Antalgic,Decreased Stride Length,Decreased Feet Clearance,Flexed Trunk Factors Limiting Gait Function Factors Limiting Gait Function Decreased Activity Tolerance, Decreased Sensation,Decreased Strength,Limited Range of Motion,Pain,Poor Balance,Poor Safety Awareness Comments Gait Comments Please refer to mobility section for details. Stair Climbing Assessment Comments Stair Climbing Comments Not assessed. No stairs at home. PT-Balance Assessment Sitting Balance and Reactions Static Sitting Balance Ability Good Dynamic Sitting Balance Ability Good Standing Balance and Reactions Static Standing Balance Ability Good Dynamic Standing Balance Ability Good Device Used FWW M5 PT-IP Objective Assessments Start: 05/16/20 08:33 Freq: NEEDED Status: Active Protocol: Document 05/16/20 10:49 [facility] (Rec: 05/16/20 11:11 [facility] [email or web address]) Orientation Orientation/Cognition Level of Alertness Alert Orientation Name,Day of Week,Place, Situation Language Function Ability No Deficits Noted Safety Awareness Decreased Safety Awareness Memory Description No Deficits Noted Gross Range of Motion Upper Extremity ROM Assessment Within Functional Limits Impairments Pt protects right shoulder with history of R reverse TSA but demonstrates good ROM. Lower Extremity ROM Assessment Within Functional Limits Strength Lower Extremity Strength Assessment Bilaterally Impaired Comments Strength Comments BLE grossly 4/5 Coordination Assessment Gross Coordination Gross Coordination WNL Sensation Assessment Sensation Gross Sensation Right LE Impaired,Left LE Impaired Light Touch Impaired Comments Sensation Comments Pt reports dull sensation to bilateral feet. Muscle Tone Muscle Tone WNL Yes M6 PT-IP Treatment Start: 05/16/20 08:33 Freq: NEEDED Status: Active Protocol: Document 05/17/20 14:09 [facility] (Rec: 05/17/20 15:04 [facility] [email or web address]) Physical Therapy Treatment Education Education Provided Precautions,Safety M7 PT-IP Assessment and Plan Start: 05/16/20 08:33 Freq: NEEDED Status: Active Protocol: Document 05/17/20 14:09 [facility] (Rec: 05/17/20 15:04 [facility] [email or web address]) PT Summary Assessment and Plan Potential Rehabilitation Potential Good Status of Condition at Evaluation Evolving Summary Impairments Pain,ROM,Strength,Balance, Sensation,Bed Mobility, Transfers,Gait,Activity Tolerance Assessment Summary Pt reported high level of pain , 8/10 w/ mobility. CGA for logroll out of bed, sit<> stands and ambulation w/ FWW. Pt ambulated ~250 ft total, first to bathroom and then in hallway w/ FWW, CGA and cues for upright posture and breathing techniques for energy conservation. Min A for logroll back to bed. Mod A x2 for repositioning. Pt requested PT within an hour of receiving pain medication tomorrow. At this point, anticipating pt to return home w/ spouse to assist when pain is managed and medically stable, however caregiver training will need to be completed prior to d/c. Goals Bed Mobility Goal Standby Assistance Transfer Goal Standby Assistance,Front Wheeled Walker Gait Goal Standby Assistance,Front Wheel Walker Gait Distance 200 Other Goals - pt will teach back spinal precautions Days to Meet Goals 3 Frequency of Treatment Frequency Of Treatment Twice a Day Treatment Plan Physical Therapy Treatment Plan Bed Mobility Training,Transfer Training,Gait Training, Therapeutic Exercise,Balance Retraining,Post Op Education, Discharge Planning,Hot or Cold Pack,Neuromuscular Re-ed Other Recommendations and Next Treatment review precautions; bed Focus mobility; progress gait with FWW; Recommendations To Nursing Amount of Assist Needed 1 Person Assist Discharge Recommendations PT Discharge Recommendations Home with Assistance,Home Health,Outpatient PT Other Discharge Recommendations home with assist and HH vs OP PT Transportation Needs at Discharge Private Vehicle
--- NOTE | 2020-05-17 14:36 | PC.NURSE ---
Day Shift- Pt A&OX4, able to make needs known using call light, bed/chair alarm used throughout shift, pt calls appropriately. Lower back dressing CDI, last changed evening shift 05/16. Pt complains of aching, throbbing pain to lower back 4/10 with rest, 6/10 with movement. Pain management plan discussed. PRN Baclofen given at 0810, [place] 10/325mg given X2 at 0807 & 1230. CMS+, pt states numbness to RLE from foot to knee and left toes. No pain radiating to RLE today. At 1420, while ambulating in halls with PT, pt was teary, stated having increased pain. Pt was able to ambulate around [place] and [facility] nursing station with PT then settled back into bed. Pt denied any spasms at that time. Physical Therapy stated that she had woken pt up for PT session, pt asked to go to then ambulated in hallways.
[2020-05-17 15:30] VITALS: BP 137/65; PULSE 83; RESP 18; TEMP 37.1; O2SAT 94
[2020-05-17] MEDS: diazePAM 5 MG TABLET PO (15:42)
[2020-05-17] MEDS: HYDROCODONE/ACET 5/325 TABLET 1 TAB PO ×2 (16:33→20:32)
[2020-05-17] MEDS: SENNOSIDES 8.6 MG TABLET 17.2 MG PO (20:31)
[2020-05-17] MEDS: ASPIRIN EC 81 MG TABLET PO (20:31)
[2020-05-17] MEDS: POLYVINYL ALCOHOL DROPS 1 DROPS EYE-BOTH (20:33)
[2020-05-17 21:00] VITALS: BP 132/60; PULSE 82; RESP 20; TEMP 37.1
[2020-05-18] VITALS (7 sets, daily range): BP systolic 95–144; BP diastolic 38–74; PULSE 17–74; RESP 17–18; TEMP 36.6–37; O2SAT 95–99
[2020-05-18] MEDS: HYDROCODONE/ACET 10/325 TABLET 1 TAB PO ×4 (00:31→12:30)
[2020-05-18] MEDS: HYDROCODONE/ACET 5/325 TABLET 1 TAB PO ×2 (00:31→04:37)
[2020-05-18] MEDS: diazePAM 5 MG TABLET PO ×3 (05:47→21:40)
--- NOTE | 2020-05-18 07:35 | PM.PNPO.1 ---
Subjective Subjective Date Patient Seen: 05/18/20 Time Patient Seen: 07:35 Interval history: 75-year-old female postop day 3 L2-3 L3-4 laminectomies and fusion with Dr. foss. Patient states she did better yesterday morning but yesterday afternoon was pretty rough with physical therapy. Only has her for help at home. Feels she would benefit from 1 more day in the hospital. was able to get the prescriptions yesterday and has filled them therefore would just need 1 more day with physical therapy to work on her pain control and mobilization and then plan discharge home on Thursday. Exam Vital Signs (past 8 hours): - 05/18/20 00:20 05/18/20 00:30 05/18/20 04:10 Temperature 98.1 F 98.6 F Pulse Rate 67 69 Respiratory Rate 18 18 Blood Pressure 97/38 L 95/62 128/73 Pulse Oximetry 97 99 Oxygen Delivery Method Room Air Oxygen Flow Rate 0 Narrative Exam Narrative: Alert oriented female no acute distress Vital signs stable Lying in bed Slow to mobilized but no excessive pain behavior. Dressing clean dry and intact. Demonstrates 5/5 dorsiflexion plantar flexion. Calfs are soft. SCDs in place Brisk capillary Objective Labs Result Diagrams: 05/16/20 06:37 05/16/20 06:37 Assessment & Plan Post-op Postoperative Procedures: Procedures Operation Date: 05/15/20 07:45 Actual Procedures Side Surgeon p L23,L34 laminectomies & anterior/posterior instrumented fusion w/bone graft/removal of old screws L4-S1 Charanjit Foss MD postop day 3. Improving. I could use another day to work with physical therapy. Physical therapy recommendations were home with neurology physician assistant. Her was not able to be around all day for physical therapy yesterday but will be available today. Anticipate discharge home tomorrow Quality VTE Deep Vein Thrombosis/Pulmonary Embolism Present on Admission: No
[2020-05-18] MEDS: GABAPENTIN 300 MG CAPSULE 600 MG PO ×2 (08:25→21:39)
[2020-05-18] MEDS: FAMOTIDINE 20 MG TABLET PO (08:26)
[2020-05-18] MEDS: DOCUSATE 100 MG CAPSULE PO ×2 (08:26→21:40)
[2020-05-18] MEDS: BACLOFEN 10 MG TABLET 20 MG PO ×2 (08:26→23:31)
[2020-05-18] MEDS: FUROSEMIDE 20 MG TABLET PO (08:26)
[2020-05-18] MEDS: LOSARTAN 50 MG TABLET 100 MG PO (08:26)
[2020-05-18] MEDS: LORATADINE 10 MG TABLET PO (08:26)
[2020-05-18] MEDS: MELOXICAM 7.5 MG TABLET 15 MG PO (08:26)
[2020-05-18] MEDS: SODIUM CHLORIDE 0.9% FLUSH 10 ML IV (08:31)
--- NOTE | 2020-05-18 10:48 | OT.IP.TRT ---
Current Diagnoses Spinal stenosis, lumbar region with neurogenic claudication (05/15/20) Arthrodesis status (05/15/20) Surgery Performed Operation Date: 05/15/20 07:45 Actual Procedures p L23,L34 laminectomies & anterior/posterior instrumented fusion w/bone graft/removal of old screws L4-S1 - Charanjit Sinclair MD Occupational Therapy Treatment Note M2 OT-IP Current Condition Start: 05/16/20 12:49 Freq: Status: Active Protocol: Document 05/16/20 11:25 [facility] (Rec: 05/16/20 13:05 [facility] [id number]) Occupational Therapy Current Condition Current Condition Evaluation Date 05/16/20 Treatment Diagnosis Lumbar Stenosis with radiculopathy Diagnosis Onset Date 05/15/20 Post Operative Precautions Lumbar Precautions Log Roll,No Twisting,Limit Bending,Lifting Restriction of 10 lbs,Gait Belt above Incisional Area M3 OT- IP Subjective and Pain Start: 05/16/20 12:49 Freq: Status: Active Protocol: Document 05/18/20 09:55 [facility] (Rec: 05/18/20 12:50 [facility] [id number]) OT- Subjective Occupational Therapy Visit Type Type Treatment Note Visit Start Time 09:55 Visit Stop Time 10:48 Total Visit Minutes 53 Occupational Therapy Visit Comments Patient Comments Pt ready to shower but wanting to use the toilet first. Patient/Caregiver Goals To go home tomorrow. OT Pain Assessment Pain When Pain Assessed During Mobility Pain Present Pain Present Pain Reported Location Lower Back Intensity 7 Scale Used Numeric (0 - 10) M4 OT- IP ADL's Start: 05/16/20 12:49 Freq: Status: Active Protocol: Document 05/18/20 09:55 [facility] (Rec: 05/18/20 12:50 [facility] [id number]) OT NFL-Rwfk-Jmntzhy General Evaluation Self-Feeding Ability Independent OT ADL-Dressing General Eval Lower Body Dressing Ability Maximum Assistance Comments OT Dressing Comments MODA as pt got tired from showering at this time. Assist with socks and for the brief. Pt's able to assist. OT ADL-Toileting Comments OT Toileting Comments Pt did not remember to order the toilet paper aid and therefore will need assist for hygiene after a bowel movement. OT ADL-Bathing Bathing Type Bathing Type Shower General Evaluation Bathing Ability Moderate Assistance Areas Needing Assistance Wash/Dry Back,Wash/Dry Perineal Area,Wash/Dry Lower Extremities Devices Bathing Equipment Shower Chair with Arms,Grab Bars Comments OT Bathing Comments Pt needing assist from her to assist for bathing needs. Pt needing heavy use of grab bars in the shower while standing. M5 OT- IP IADL's Start: 05/16/20 12:49 Freq: Status: Active Protocol: Document 05/16/20 11:25 [facility] (Rec: 05/16/20 13:05 [facility] [id number]) OT-Instrumental Activities of Daily Living Home Safety Awareness Awareness of Need for Assistance at Home Good Awareness Meal Preparation Meal Preparation Caregiver Provides Assist Electrical Design Engineer Electrical Design Engineer Caregiver Provides Assist M6 OT- IP Functional Cognition Start: 05/16/20 12:49 Freq: Status: Active Protocol: Document 05/18/20 09:55 [facility] (Rec: 05/18/20 12:50 [facility] [id number]) Cognitive Factors Limiting Selfcare Function Cognitive Ability Level of Alertness Alert Patient Orientation Name,Age,Birthday,Month,Date, Year,Day of Week,Place, Situation Attention Span Ability Capable of Focused Attention, Capable of Sustained Attention Ability to Follow Commands Able to Follow One Step Commands Memory Description Short Term Impaired Safety Awareness Decreased Ability to Apply Precautions,Underestimates Need for Assistance Cognitive Comments Cognitive Assessment Comments Pt at times forgetful of back precautions and gets upset with her and stated to him, You should know what I need and want. OT able to explain to pt it is best to be concrete and let her know what she needs. Pt states, We have had 35 years of not communicating well. Therefore stressed to both pt and will be even more important to try to communicated with each other after having back surgery. M7 OT- IP Mobility and Balance Start: 05/16/20 12:49 Freq: Status: Active Protocol: Document 05/18/20 09:55 [facility] (Rec: 05/18/20 12:50 [facility] [id number]) OT- Bed Mobility Assessment Supine to Sit Supine to Sit Assist Contact Guard Assistance,1 Person Assistance Sit to Supine Sit to Supine Assist Minimal Assistance,1 Person Assistance OT-Transfer Assessment Sit to and From Stand Sit to and from Stand Contact Guard Assistance Transfers Transfer Ability Standby Assistance,Minimal Assistance Technique Transfer Destination Bed,Shower Stall,Toilet Devices Transfer Assistive Devices Gait Belt,Front Wheeled Walker Comments Mobility Comments Pt needing to cue her how to assist her for bed mobility needs but both able to complete with good safety. Reiterated best for both pt and to try to be patient with each other and try to communicate. Pt needing LEENA to help step into the shower. OT- Gait Assessment Comments Gait Ability Comments SBA with FWW in the room. OT- Balance Assessment Sitting Balance and Reactions Static Sitting Balance Ability Normal Dynamic Sitting Balance Ability Good Standing Balance and Reactions Static Standing Balance Ability Fair Dynamic Standing Balance Ability Fair M9 OT- IP Assessment and Plan Start: 05/16/20 12:49 Freq: Status: Active Protocol: Document 05/18/20 09:55 [facility] (Rec: 05/18/20 12:50 [facility] [id number]) OT Summary Assessment and Plan Potential Rehabilitation Potential Good Analytic Complexity at Evaluation Low Summary OT Impairments Pain,Functional Cognition, Functional Mobility,Dressing, Toileting,Bathing,Toilet Transfers,Shower Transfers, Activity Tolerance Progress Towards Goals Progressing Toward Goals Assessment Summary Pt's present for caregiver training for showering and bed mobility needs and able to assist pt with good safety. Pt's at times is forgetful of how to assist the pt and pt has to remind her how to assist. OT to wrok with pt tomorrow and practice dressing needs with LB dressing equipment. Pt would benefit from home health to continue to educated on back precautions for ADl and IADl needs. Goals Grooming Goal Independent Dressing Goal Independent Toileting Goal Independent,Toilet Paper Aid Bathing Goal Standby Assistance Toilet Transfer Goal Independent Shower Transfer Goal Independent Patient/Caregiver Education Goal Demonstrate Post-Op Precautions,Caregiver Independent Assisting Patient Days to Meet Goals 1 Frequency of Treatment Frequency Of Treatment Once a Day Treatment Plan OT Treatment Plan ADL Training,Functional Cognition Training,Functional Mobility,Patient/Family Education,Discharge Planning Other Treatment Recommendations and Next caregiver training Treatment Focus Discharge Recommendations OT Discharge Recommendations Home with Assistance Home Equipment Needs Toilet paper aid Transportation Needs at Discharge Private Vehicle
--- NOTE | 2020-05-18 11:18 | PC.NURSE ---
Addendum entered by Beatriz Marie R.N. 05/18/20 12:57: Pt's Zach took prescriptions to get filled and asked Zach to bring prescriptions home. Prescription and pain management reviewed with pt. Pt states she normally takes 7.5mg [place] tabs at home. Explained weaning from narcotic pain meds, letting pain guide activity and prn pain meds, writing down dose amount and last taken to keep track of pain levels and pain meds taken. Original Note: Day Shift- Pt OOB this Am, had breakfast in recliner chair. 1PA using walker and gait belt. Minimal assist for helping pt from lying to sitting with minimal verbal cues to maintain post op precautions. Pt had shower with OT assist. Lower back dressing changed. Removed old dressing, had 1 abd pad and 2 telf dressings present, small amount of sero-sang drainage on dressing. No active leaking to incisions. Bilateral incisions well approximated with lm intact. No S/S of infection. Area cleansed with NS, pat dry and 2 overlapping coversite dressings placed. Pt tolerated well. Pt reports 6/10 pain with movement that is aching and throbbing to lower back. Pain management plan discussed, plan for norco 10/325 during day every 4 hours as needed and [place] 15/325 at night. Pt has not had a BM post op yet. Scheduled docusate given, PRN Milk of Magnesia given, pt wanted to have after breakfast. Will monitor. Pt's Zach rooming in.
--- NOTE | 2020-05-18 11:55 | PT.IPTN ---
Current Diagnoses Spinal stenosis, lumbar region with neurogenic claudication (05/15/20) Arthrodesis status (05/15/20) Surgery Performed Operation Date: 05/15/20 07:45 Actual Procedures p L23,L34 laminectomies & anterior/posterior instrumented fusion w/bone graft/removal of old screws L4-S1 - Charanjit Sinclair MD Physical Therapy Treatment Note M2 PT-IP Current Condition Start: 05/16/20 08:33 Freq: NEEDED Status: Active Protocol: Document 05/16/20 10:49 [facility] (Rec: 05/16/20 11:11 [facility] [id number]) Physical Therapy Current Condition Current Condition Evaluation Date 05/16/20 Treatment Diagnosis s/p L2-3 L 3-4 TLIF; difficulty in walking Onset Date 05/15/20 Precautions Lumbar Precautions Log Roll,No Twisting,Limit Bending,Lifting Restriction of 10 lbs,Gait Belt above Incisional Area M3 PT-IP Subjective Start: 05/16/20 08:33 Freq: NEEDED Status: Active Protocol: Document 05/18/20 11:37 [facility] (Rec: 05/18/20 14:25 [facility] [id number]) Subjective Physical Therapy Visit Type Type Treatment Note Visit Start Time 11:37 Visit Stop Time 11:55 Total Visit Minutes 18 Number of HAND ROUTER OPERATOR Visits 4 Physical Therapy Visit Comments Patient Comments Pt is willing to participate with PT Patient Goals Pt hopes to return home with her spouse assisting Therapy Pain Assessment Pain When Pain Assessed During Mobility Pain Present Pain Present Pain Reported Location Lower Back Intensity 4 Scale Used Numeric (0 - 10) Description Aching Pain Behaviors Guarding,Wincing Pain Management Techniques Distraction,Re-positioning, Timing of Activity with Medications M4 PT-IP Mobility and Gait Start: 05/16/20 08:33 Freq: NEEDED Status: Active Protocol: Document 05/18/20 11:37 [facility] (Rec: 05/18/20 14:25 [place] [id number]) PT-Bed Mobility Assessment Rolling Type of Rolling Roll to Left Level of Assist Contact Guard Assistance,1 Person Assistance Supine to Sit Supine to Sit Contact Guard Assistance,1 Person Assistance Sit to Supine Sit to Supine Contact Guard Assistance,1 Person Assistance Scooting Scooting to Edge of Bed Standby Assistance PT-Transfer Assessment Sit to and From Stand Sit to and from Stand Contact Guard Assistance,1 Person Assistance,Use of Upper Extremities Equipment Transfer Assistive Device Gait Belt,Front Wheeled Walker Orthotic/Prosthetic Devices or Brace: No Transfers Transfer Destination Bed Transfer Technique pt ambulated with FWW Transfer Ability Level of Assist Contact Guard Assistance,1 Person Assistance,Use of Upper Extremities Comments Mobility Comments Pt in bed upon arrival from therapy w/ present for caregiver training. Pt reporting 4/10 pain w/ mobilityn and able to recall 3 /3 precautions. CGA provided by for logroll to L and sidelying to sit. Instructed pts how to apply gait belt. Pt then sit<> stand CGA w/ FWW and ambulated ~250 ft w/ SBA. PT returned to room, Min A provided by for logroll back into bed. Pt left in room w/ nursing present. Gait Assessment Gait Gait Assistance Required: Standby Assistance Distance (Feet) 250 Able to Maintain Weight Bearing Status Yes During Gait Assistive Devices Assistive Device Gait Belt,Front Wheeled Walker Orthotic/Prosthetic Devices or Brace: No Gait Deviations General Gait Pattern Antalgic,Decreased Stride Length,Decreased Feet Clearance,Flexed Trunk Factors Limiting Gait Function Factors Limiting Gait Function Decreased Activity Tolerance, Decreased Sensation,Decreased Strength,Limited Range of Motion,Pain,Poor Balance,Poor Safety Awareness Comments Gait Comments Pt ambulated ~250 ft w/ FWW and SBA. Cues for upright posture and equal step length. Stair Climbing Assessment Comments Stair Climbing Comments Not assessed. No stairs at home. PT-Balance Assessment Sitting Balance and Reactions Static Sitting Balance Ability Good Dynamic Sitting Balance Ability Good Standing Balance and Reactions Static Standing Balance Ability Good Dynamic Standing Balance Ability Good Device Used FWW M5 PT-IP Objective Assessments Start: 05/16/20 08:33 Freq: NEEDED Status: Active Protocol: Document 05/16/20 10:49 [facility] (Rec: 05/16/20 11:11 AW [id number]) Orientation Orientation/Cognition Level of Alertness Alert Orientation Name,Day of Week,Place, Situation Language Function Ability No Deficits Noted Safety Awareness Decreased Safety Awareness Memory Description No Deficits Noted Gross Range of Motion Upper Extremity ROM Assessment Within Functional Limits Impairments Pt protects right shoulder with history of R reverse TSA but demonstrates good ROM. Lower Extremity ROM Assessment Within Functional Limits Strength Lower Extremity Strength Assessment Bilaterally Impaired Comments Strength Comments BLE grossly 4/5 Coordination Assessment Gross Coordination Gross Coordination WNL Sensation Assessment Sensation Gross Sensation Right LE Impaired,Left LE Impaired Light Touch Impaired Comments Sensation Comments Pt reports dull sensation to bilateral feet. Muscle Tone Muscle Tone WNL Yes M6 PT-IP Treatment Start: 05/16/20 08:33 Freq: NEEDED Status: Active Protocol: Document 05/18/20 11:37 [place] (Rec: 05/18/20 14:25 [place] [id number]) Physical Therapy Treatment Education Education Provided Precautions,Safety M7 PT-IP Assessment and Plan Start: 05/16/20 08:33 Freq: NEEDED Status: Active Protocol: Document 05/18/20 11:37 [facility] (Rec: 05/18/20 14:25 [facility] [id number]) PT Summary Assessment and Plan Potential Rehabilitation Potential Good Status of Condition at Evaluation Evolving Summary Impairments Pain,ROM,Strength,Balance, Sensation,Bed Mobility, Transfers,Gait,Activity Tolerance Progress Towards Goals Progressing Toward Goals Assessment Summary Completed caregiver training w / pts who was able to provide correct assist and application of gait belt. Pt CGA for logroll and sidelying to sit and sit<>stand. SBA for ambulation w/ cues for posture. Min A for sit<>sup for LE guidance into bed. Goals Bed Mobility Goal Standby Assistance Transfer Goal Standby Assistance,Front Wheeled Walker Gait Goal Standby Assistance,Front Wheel Walker Gait Distance 200 Other Goals - pt will teach back spinal precautions Days to Meet Goals 3 Frequency of Treatment Frequency Of Treatment Twice a Day Treatment Plan Physical Therapy Treatment Plan Bed Mobility Training,Transfer Training,Gait Training, Therapeutic Exercise,Balance Retraining,Post Op Education, Discharge Planning,Hot or Cold Pack,Neuromuscular Re-ed Other Recommendations and Next Treatment review precautions; bed Focus mobility; progress gait with FWW; Recommendations To Nursing Amount of Assist Needed 1 Person Assist Discharge Recommendations PT Discharge Recommendations Home with Assistance,Home Health,Outpatient PT Other Discharge Recommendations home with assist and HH vs OP PT Transportation Needs at Discharge Private Vehicle
--- NOTE | 2020-05-18 14:34 | PT-IP ANOTE ---
Pt refusing therapy this PM d/t high reported pain. Pt states she will ambulate w/ nursing staff this evening.
[2020-05-18] MEDS: HYDROCODONE/ACET 10/325 TABLET 2 TAB PO ×2 (17:26→21:41)
--- NOTE | 2020-05-18 17:34 | PC.NURSE ---
Addendum entered by Lashay Tiwari R.N. 05/18/20 23:33: Requires assistance for positioning for comfort in bed. Requests multiple pillows. BL calf scd's in place. Declines ice to back. Spouse rooming in. Addendum entered by Lashay Tiwari R.N. 05/18/20 18:18: Ambulates with walker and standby assistance in hallway from room 205 to main nurses station. Returned to room and assisted into bed. Does require assistance with right leg into bed. Positioned for comfort and encouraged pt off of back for comfort. BL calf scd's replaced. Original Note: Pt in bed with numerous pillows @ beginning of shift and c/o back pain and thigh pain -06/11. Requests assistance to toilet. Pt is able to observe log rolling technique and minimal assistance to sit up in bed. Ambulates with walker into bathroom to void. Up in chair and reports more comfortable. Discussed use of valium to manage pain and pt agreeable. This was administered. Pt reports baseline numbness to feet BL more pronounced to right foot. Calf scd's removed while pt up in chair. Pt requests pain meds for back incisional pain 04/11. Requests 15 mg hydrocodone and this was given. Discussed with pt and pt's spouse narcotic pain meds are ordered on an as needed basis and pt needs to request these from staff. Spouse is present and rooming in with patient. Pt reports desires to walk in hallway and was encouraged to call for assistance when finished with evening meal and prepared to do so. Pt acknowledges understanding to all of the above.
[2020-05-18] MEDS: ASPIRIN EC 81 MG TABLET PO (21:40)
[2020-05-18] MEDS: SENNOSIDES 8.6 MG TABLET 17.2 MG PO (21:40)
[2020-05-19] VITALS: BP 140/68; PULSE 69; RESP 16; TEMP 37.1; O2SAT 95
[2020-05-19] MEDS: HYDROCODONE/ACET 10/325 TABLET 1 TAB PO ×3 (01:48→09:18)
[2020-05-19] MEDS: HYDROCODONE/ACET 5/325 TABLET 1 TAB PO ×2 (01:48→05:50)
[2020-05-19 05:54] VITALS: BP 122/50; PULSE 69; RESP 18; TEMP 36.4; O2SAT 94
[2020-05-19 08:00] VITALS: BP 151/55; PULSE 71; RESP 17; TEMP 36.4; O2SAT 97
--- NOTE | 2020-05-19 08:13 | PM.PN.1 ---
Subjective Subjective Date Patient Seen: 05/19/20 Time Patient Seen: 08:13 Interval history: She notes that she is feeling better this morning. She had a good night overall and was able to get some rest. Yesterday she worked with physical therapy but did have a significant amount of pain in the afternoon and some burning into her legs. She notes that it is better this morning. Exam Vital Signs (past 8 hours): - 05/19/20 05:54 Temperature 97.6 F Pulse Rate 69 Respiratory Rate 18 Blood Pressure 122/50 L Pulse Oximetry 94 Oxygen Delivery Method Room Air Oxygen Flow Rate 0 Narrative Exam Narrative: She is alert she is oriented she is moving her legs bilaterally without restrictions, her calfs are soft bilaterally her dressing is dry. She has good sensation in the legs bilaterally. Objective Labs Result Diagrams: 05/16/20 06:37 05/16/20 06:37 Assessment & Plan Assessment & Plan narrative: Doing better after extensive lumbar spines surgery. Plan told her it is okay to be discharged to home today. She has her prescriptions in her postop follow-up scheduled. She has help at home with her . Quality VTE Deep Vein Thrombosis/Pulmonary Embolism Present on Admission: No
[2020-05-19] MEDS: DOCUSATE 100 MG CAPSULE PO (09:18)
[2020-05-19] MEDS: GABAPENTIN 300 MG CAPSULE 600 MG PO (09:18)
[2020-05-19] MEDS: FUROSEMIDE 20 MG TABLET PO (09:18)
[2020-05-19] MEDS: SODIUM CHLORIDE 0.9% FLUSH 10 ML IV (09:18)
[2020-05-19] MEDS: MELOXICAM 7.5 MG TABLET 15 MG PO (09:19)
[2020-05-19] MEDS: LORATADINE 10 MG TABLET PO (09:19)
[2020-05-19] MEDS: LOSARTAN 50 MG TABLET 100 MG PO (09:19)
[2020-05-19] MEDS: FAMOTIDINE 20 MG TABLET PO (09:19)
[2020-05-19] MEDS: BACLOFEN 10 MG TABLET 20 MG PO (09:27)
--- NOTE | 2020-05-19 09:42 | PT.IPTN ---
Current Diagnoses Spinal stenosis, lumbar region with neurogenic claudication (05/15/20) Arthrodesis status (05/15/20) Surgery Performed Operation Date: 05/15/20 07:45 Actual Procedures p L23,L34 laminectomies & anterior/posterior instrumented fusion w/bone graft/removal of old screws L4-S1 - Charanjit Sinclair MD Physical Therapy Treatment Note M2 PT-IP Current Condition Start: 05/16/20 08:33 Freq: NEEDED Status: Active Protocol: Document 05/16/20 10:49 AW (Rec: 05/16/20 11:11 AW [id number]) Physical Therapy Current Condition Current Condition Evaluation Date 05/16/20 Treatment Diagnosis s/p L2-3 L 3-4 TLIF; difficulty in walking Onset Date 05/15/20 Precautions Lumbar Precautions Log Roll,No Twisting,Limit Bending,Lifting Restriction of 10 lbs,Gait Belt above Incisional Area M3 PT-IP Subjective Start: 05/16/20 08:33 Freq: NEEDED Status: Active Protocol: Document 05/19/20 09:18 KS (Rec: 05/19/20 11:09 KS [id number]) Subjective Physical Therapy Visit Type Type Treatment Note Visit Start Time 09:18 Visit Stop Time 09:42 Total Visit Minutes 24 Number of NEEDLE CONTROL CHENILLER Visits 5 Physical Therapy Visit Comments Patient Comments Pt is willing to participate with . Pts present to assess carryover of caregiver training. Patient Goals Pt hopes to return home with her spouse assisting M4 PT-IP Mobility and Gait Start: 05/16/20 08:33 Freq: NEEDED Status: Active Protocol: Document 05/19/20 09:18 KS (Rec: 05/19/20 11:09 KS [id number]) PT-Bed Mobility Assessment Rolling Type of Rolling Roll to Left Level of Assist Contact Guard Assistance,1 Person Assistance Supine to Sit Supine to Sit Contact Guard Assistance,1 Person Assistance Sit to Supine Sit to Supine Minimal Assistance,1 Person Assistance Scooting Scooting to Edge of Bed Standby Assistance PT-Transfer Assessment Sit to and From Stand Sit to and from Stand Standby Assistance,1 Person Assistance,Use of Upper Extremities Equipment Transfer Assistive Device Gait Belt,Front Wheeled Walker Orthotic/Prosthetic Devices or Brace: No Transfers Transfer Destination Bed,Chair Transfer Technique pt ambulated with FWW Transfer Ability Level of Assist Contact Guard Assistance,1 Person Assistance,Use of Upper Extremities Comments Mobility Comments Pt in chair upon arrival w/ present. Pts able to ania gait belt and provide appropriate assist throughout treatment. Pt SBA for scooting to edge of chair and sit<>stand. Pt then ambulated ~120 ft w/ FWW and SBA provided by . Cues for upright posture. Pt and returned to room and performed logroll into and out of bed CGA for sit<>sidelying and Min A for sidelying<>sit provided by . Pt then sit<>stand and ambulated and transferred to chair SBA. Reviewed precautions. Pt left in chair w/ all needs in reach . Gait Assessment Gait Gait Assistance Required: Standby Assistance Distance (Feet) 140 Able to Maintain Weight Bearing Status Yes During Gait Assistive Devices Assistive Device Gait Belt,Front Wheeled Walker Orthotic/Prosthetic Devices or Brace: No Gait Deviations General Gait Pattern Antalgic,Decreased Stride Length,Decreased Feet Clearance,Flexed Trunk Factors Limiting Gait Function Factors Limiting Gait Function Decreased Activity Tolerance, Decreased Sensation,Decreased Strength,Limited Range of Motion,Pain,Poor Balance,Poor Safety Awareness Comments Gait Comments Pt ambulated ~140 ft total w/ FWW and SBA provided by . Min cues for upright posture. Stair Climbing Assessment Comments Stair Climbing Comments Not assessed. No stairs at home. PT-Balance Assessment Sitting Balance and Reactions Static Sitting Balance Ability Good Dynamic Sitting Balance Ability Good Standing Balance and Reactions Static Standing Balance Ability Good Dynamic Standing Balance Ability Good Device Used FWW M5 PT-IP Objective Assessments Start: 05/16/20 08:33 Freq: NEEDED Status: Active Protocol: Document 05/16/20 10:49 AW (Rec: 05/16/20 11:11 AW [email or web address]) Orientation Orientation/Cognition Level of Alertness Alert Orientation Name,Day of Week,Place, Situation Language Function Ability No Deficits Noted Safety Awareness Decreased Safety Awareness Memory Description No Deficits Noted Gross Range of Motion Upper Extremity ROM Assessment Within Functional Limits Impairments Pt protects right shoulder with history of R reverse TSA but demonstrates good ROM. Lower Extremity ROM Assessment Within Functional Limits Strength Lower Extremity Strength Assessment Bilaterally Impaired Comments Strength Comments BLE grossly 4/5 Coordination Assessment Gross Coordination Gross Coordination WNL Sensation Assessment Sensation Gross Sensation Right LE Impaired,Left LE Impaired Light Touch Impaired Comments Sensation Comments Pt reports dull sensation to bilateral feet. Muscle Tone Muscle Tone WNL Yes M6 PT-IP Treatment Start: 05/16/20 08:33 Freq: NEEDED Status: Active Protocol: Document 05/19/20 09:18 KS (Rec: 05/19/20 11:09 KS [id number]) Physical Therapy Treatment Education Education Provided Precautions,Safety Other Treatments Other Treatment Performed Caregiver training, precautions. M7 PT-IP Assessment and Plan Start: 05/16/20 08:33 Freq: NEEDED Status: Active Protocol: Document 05/19/20 09:18 KS (Rec: 05/19/20 11:09 KS [id number]) PT Summary Assessment and Plan Potential Rehabilitation Potential Good Status of Condition at Evaluation Evolving Summary Impairments Pain,ROM,Strength,Balance, Sensation,Bed Mobility, Transfers,Gait,Activity Tolerance Progress Towards Goals Progressing Toward Goals Assessment Summary Assessed pts husbands carryover of caregiver training. Caregiver needed Min cues to provide assist for sidelying to sit. Pt is CGA to Min A for bed mobility and SBA for sit<>stand and ambulation. Pts was able to provide correct assist throughout treatment. Pt ambulated ~140 ft SBA and states she has FWW to use at home for ambulation. Goals Bed Mobility Goal Standby Assistance Transfer Goal Standby Assistance,Front Wheeled Walker Gait Goal Standby Assistance,Front Wheel Walker Gait Distance 200 Other Goals - pt will teach back spinal precautions Days to Meet Goals 3 Frequency of Treatment Frequency Of Treatment Twice a Day Treatment Plan Physical Therapy Treatment Plan Bed Mobility Training,Transfer Training,Gait Training, Therapeutic Exercise,Balance Retraining,Post Op Education, Discharge Planning,Hot or Cold Pack,Neuromuscular Re-ed Other Recommendations and Next Treatment review precautions; bed Focus mobility; progress gait with FWW; Recommendations To Nursing Amount of Assist Needed 1 Person Assist Discharge Recommendations PT Discharge Recommendations Home with Assistance,Home Health,Outpatient PT Other Discharge Recommendations home with assist and HH vs OP PT Transportation Needs at Discharge Private Vehicle
--- NOTE | 2020-05-19 10:11 | OT.IP.TRT ---
Current Diagnoses Spinal stenosis, lumbar region with neurogenic claudication (05/15/20) Arthrodesis status (05/15/20) Surgery Performed Operation Date: 05/15/20 07:45 Actual Procedures p L23,L34 laminectomies & anterior/posterior instrumented fusion w/bone graft/removal of old screws L4-S1 - Charanjit Sinclair MD Occupational Therapy Treatment Note M2 OT-IP Current Condition Start: 05/16/20 12:49 Freq: Status: Active Protocol: Document 05/16/20 11:25 CCC (Rec: 05/16/20 13:05 [facility] [id number]) Occupational Therapy Current Condition Current Condition Evaluation Date 05/16/20 Treatment Diagnosis Lumbar Stenosis with radiculopathy Diagnosis Onset Date 05/15/20 Post Operative Precautions Lumbar Precautions Log Roll,No Twisting,Limit Bending,Lifting Restriction of 10 lbs,Gait Belt above Incisional Area M3 OT- IP Subjective and Pain Start: 05/16/20 12:49 Freq: Status: Active Protocol: Document 05/19/20 11:11 CGR (Rec: 05/19/20 11:28 CGR [email or web address]) OT- Subjective Occupational Therapy Visit Type Type Progress Note Visit Start Time 09:50 Visit Stop Time 10:11 Total Visit Minutes 21 OT Pain Assessment Pain When Pain Assessed During Mobility Pain Present Pain Present Pain Reported Location Bilateral Thigh Intensity 3 Scale Used Numeric (0 - 10) Management Techniques Modification of Treatment, Timing of Activity with Medications M4 OT- IP ADL's Start: 05/16/20 12:49 Freq: Status: Active Protocol: Document 05/19/20 11:11 CGR (Rec: 05/19/20 11:28 CGR [email or web address]) OT [id number] Comments OT Self-Feeding Comments not meal time OT ADL-Grooming General Evaluation Grooming Ability Independent Areas Needing Assistance Combing/Brushing Hair Comments OT Grooming Comments combing hair and applying makeup OT ADL-Oral Care Comments Oral Care Comments not performed OT ADL-Dressing General Eval Upper Body Dressing Ability Independent Lower Body Dressing Ability Standby Assistance Areas Needing Assistance Pull-Over Shirt,Underpants/ Brief Assistive Devices Dressing Assistive Devices Compliance Representative Comments OT Dressing Comments underwear and bone puller dress OT ADL-Toileting General Evaluation Toileting Ability Maximum Assistance Devices Toileting Assistive Devices Commode Comments OT Toileting Comments Pt is able to manage clothing but needed max a for back pericare. OT ADL-Bathing Comments OT Bathing Comments not performed M5 OT- IP IADL's Start: 05/16/20 12:49 Freq: Status: Active Protocol: Document 05/16/20 11:25 [facility] (Rec: 05/16/20 13:05 CCC [email or web address]) OT-Instrumental Activities of Daily Living Home Safety Awareness Awareness of Need for Assistance at Home Good Awareness Meal Preparation Meal Preparation Caregiver Provides Assist Rn Labor And Delivery Rn Labor And Delivery Caregiver Provides Assist M6 OT- IP Functional Cognition Start: 05/16/20 12:49 Freq: Status: Active Protocol: Document 05/19/20 11:11 CGR (Rec: 05/19/20 11:28 CGR [email or web address]) Cognitive Factors Limiting Selfcare Function Cognitive Ability Level of Alertness Alert Patient Orientation Name,Age,Birthday,Month,Date, Year,Day of Week,Place, Situation Attention Span Ability Capable of Focused Attention, Capable of Sustained Attention Ability to Follow Commands Able to Follow One Step Commands Memory Description Short Term Impaired Safety Awareness Decreased Ability to Apply Precautions,Underestimates Need for Assistance Problem Solving Ability Needs Assist to Identify Solutions OT- Vision and Hearing OT- Hearing Assessment OT- Hearing Assessment WFL OT- Vision Assessment Visual Acuity WFL M7 OT- IP Mobility and Balance Start: 05/16/20 12:49 Freq: Status: Active Protocol: Document 05/19/20 11:11 CGR (Rec: 05/19/20 11:28 CGR [email or web address]) OT-Transfer Assessment Sit to and From Stand Sit to and from Stand Standby Assistance Transfers Transfer Ability Standby Assistance Technique Transfer Destination Chair,Toilet Transfer Technique Stand Step Pivot Devices Transfer Assistive Devices Front Wheeled Walker Comments Mobility Comments mobility to bathroom and return to chair. OT- Balance Assessment Sitting Balance and Reactions Static Sitting Balance Ability Good Dynamic Sitting Balance Ability Fair M9 OT- IP Assessment and Plan Start: 05/16/20 12:49 Freq: Status: Active Protocol: Document 05/19/20 11:11 CGR (Rec: 05/19/20 11:28 CGR [email or web address]) OT Summary Assessment and Plan Potential Rehabilitation Potential Good Analytic Complexity at Evaluation Low Summary OT Impairments Pain,Functional Cognition, Functional Mobility,Dressing, Toileting,Bathing,Toilet Transfers,Shower Transfers, Activity Tolerance Progress Towards Goals Progressing Toward Goals Assessment Summary Pt participated in dressing and toileting. Pt requested assist with back pericare and states that she ordered an extended arm pericare wiper for home use. Pt then dressed seated in chair without physical assist. Pt left sitting up with plan for d/c home today. Goals Grooming Goal Independent Dressing Goal Independent Toileting Goal Independent,Toilet Paper Aid Bathing Goal Standby Assistance Toilet Transfer Goal Independent Shower Transfer Goal Independent Patient/Caregiver Education Goal Demonstrate Post-Op Precautions,Caregiver Independent Assisting Patient Days to Meet Goals 1 Frequency of Treatment Frequency Of Treatment Once a Day Treatment Plan OT Treatment Plan ADL Training,Functional Cognition Training,Functional Mobility,Patient/Family Education,Discharge Planning Discharge Recommendations OT Discharge Recommendations Home with Assistance Home Equipment Needs Toilet paper aid Transportation Needs at Discharge Private Vehicle
--- NOTE | 2020-05-19 11:10 | PC.NURSE ---
Discharge: IV dc'd yesterday. Dressing to mid-low back changed this morning. Incisions were well-approximated and without active bleeding or drainage noted, covered with Coversite dressing. Instructed, per d/c paperwork, that she's ok to shower and change dressing Thursday. Given dressing supplies. Instructed to leave that dressing on until follow up unless it becomes saturated with water/drainage, in which case they should call MD office. Reviewed all d/c instructions thoroughly with patient and . She was seen by PT and OT this morning and cleared to go home. Patient and verbalized understanding of d/c instructions and stated no further questions. All personal belongings sent with patient. Wheeled out to private vehicle by nursing staff.
--- NOTE | 2020-05-19 11:39 | CM.DPNOTE ---
DC Note DC home w/spouse and outpt PT as expected. No DC needs identified by this [employer]. Patient agreeable to this plan and eager to return home JW
== END 2020-05-19 11:14 | disposition home or self-care (01) | DRG 455 ==
PROVIDERS: Admitting Provider Orthopaedic Surgery; Referring Provider Orthopaedic Surgery; Visit Provider Orthopaedic Surgery
PROC: 0SG00A0 Fusion of Lumbar Vertebral Joint with Interbody Fusion Device, Anterior Approach, Anterior Column, Open Approach (ICD-10-PCS; CPT 22558; principal; 2020-05-15 07:45)
DX: M48.062 Spinal stenosis, lumbar region with neurogenic claudication (principal); I10 Essential (primary) hypertension; M79.7 Fibromyalgia; F17.210 Nicotine dependence, cigarettes, uncomplicated; Z86.73 Personal history of transient ischemic attack (TIA), and cerebral infarction without residual deficits; G89.18 Other acute postprocedural pain; Z01.812 Encounter for preprocedural laboratory examination; Z11.59 Encounter for screening for other viral diseases
CPT/HCPCS: 36415; 72100; 76000; 80048; 85014; 85018; 87635; 97116; 97161; 97165; 97530; 97535; C1776; A9270; J0131; J0330; J0595; J0690; J1100; J1170; J2250; J2274; J2405; J2704; J3010